=== PATIENT | female | born 1940 | race Caucasian/White ===

== ENCOUNTER 2017-11-28 07:11 | Inpatient (IN) ==
[2017-11-28] MEDS ORDERED: Ipratropium/Albuterol Neb 3 ML IH ONE (07:17)
[2017-11-28] MEDS ORDERED: Aspirin 81 MG TAB.CHEW PO ONE (07:19)
--- NOTE | 2017-11-28 07:32 | Emergency Department Note ---
Disposition Clinical Impression: Elevated troponin CAP (community acquired pneumonia) Qualifiers: Laterality: right Lung location: lower lobe of lung Qualified Code(s): J18.1 - Lobar pneumonia, unspecified organism Pulmonary edema Qualifiers: Chronicity: acute Qualified Code(s): J81.0 - Acute pulmonary edema Disposition: Admitted As Inpatient Condition: Fair Time of Disposition: 09:52 SOB HPI - General Chief Complaint: ED Shortness of Breath/Dyspnea Stated Complaint: bre Time Seen by Provider: 11/28/17 07:17 Source: patient, EMS Mode of arrival: EMS Limitations: no limitations Nursing Notes Reviewed: Yes Vital Signs Reviewed: Yes - History of Present Illness 76-year-old female presents to the emergency department complaining of shortness of breath. Says this has been going on for 2 or 3 days but worsened today when she woke up. Patient is on home oxygen when she needs about 2-3 L. Patient does have chronic kidney disease as she can be fluid overloaded sometimes. Patient's eye complaining of any chest pain at this time. She has no cardiac history that she knows of. She believes she is not have COPD. Patient otherwise says she does not hurt anywhere. She is having a hard time breathing. Patient was has no complaints including fevers, chills, nausea, vomiting, headache, blurry vision, neck pain, back pain, chest pain, abdominal pain, pain with urination, changes in bowel movements, particularly her arms or legs and generalized weakness - Related Data Home Medications Medication Instructions Recorded Confirmed Dronedarone [Multaq] 400 mg PO BID 09/04/15 02/09/16 Furosemide [Lasix] 40 mg PO BID 09/04/15 02/09/16 Glimepiride [Amaryl] 1 mg PO DAILY PRN 09/04/15 02/09/16 Insulin Glargine,Hum.rec.anlog 25 units SQ HS 09/04/15 02/09/16 [Lantus Solostar] Paricalcitol [Zemplar] 1 mcg PO DAILY 09/04/15 02/09/16 Potassium Chloride 20 meq PO DAILY 09/04/15 02/09/16 Sertraline [Zoloft] 50 mg PO DAILY 09/04/15 02/09/16 Warfarin [Coumadin] 5 mg PO DAILY 09/04/15 02/09/16 amLODIPine [Norvasc] 10 mg PO DAILY 09/04/15 02/09/16 Aspirin [Lo-Dose Aspirin EC] 81 mg PO DAILY 11/28/17 11/28/17 Atorvastatin [Lipitor] 40 mg PO HS 11/28/17 11/28/17 Carvedilol [Coreg] 25 mg PO BID 11/28/17 11/28/17 Iron Polysaccharide Complex [Pro 180 mg PO DAILY 11/28/17 11/28/17 Fe] LORazepam [Ativan] 0.5 mg PO HS PRN 11/28/17 11/28/17 Ranolazine [Ranexa] 500 mg PO BID 11/28/17 11/28/17 Warfarin [Coumadin] 2.5 mg PO MOTH 11/28/17 11/28/17 metOLazone [Zaroxolyn] 2.5 mg PO DAILY 11/28/17 11/28/17 Allergies Allergy/AdvReac Type Severity Reaction Status Date / Time epinephrine Allergy See Verified 11/28/17 09:46 Comments prednisone Allergy Itching Verified 11/28/17 09:46 Amoxicillin [From Augmentin] AdvReac Nausea Verified 11/28/17 09:46 clavulanic acid AdvReac Nausea Verified 11/28/17 09:46 [From Augmentin] Review of Systems: 10 point review of systems done and negative unless otherwise stated in the history of present illness. All systems ED: reviewed and negative except as stated. Review of Systems: As Per HPI Past Medical History - Past Medical History Attestation: Yes The following information was validated with the patient. Source: patient Medical history: Reports: atrial fibrillation, diabetes, GERD, hyperlipidemia, hypertension, renal disease, other Surgical history: Reports: angioplasty/stent, , orthopedic, other, other Psychiatric history: Reports: anxiety - Social History Smoking Status: Former smoker Smokeless Tobacco Status: No Alcohol use: Reports: none Drug use: Reports: none Physical Exam - General Limitations: no limitations General appearance: alert, in no apparent distress - Head Head exam: atraumatic, normocephalic, normal inspection - Eye Eye exam: Present: normal appearance, PERRL, EOMI - ENT ENT exam: normal exam, normal oropharynx, mucous membranes moist - Neck Neck exam: Present: normal inspection, full ROM, trachea midline - Chest Chest inspection: Present: normal inspection, symmetric chest wall rise - Respiratory Respiratory exam: Present: wheezes (Mild wheezes bilaterally.). Absent: respiratory distress, accessory muscle use, prolonged expiratory phase - Cardiovascular Cardiovascular exam: Present: regular rate, normal rhythm, normal heart sounds - Abdominal Exam Abdominal exam: Present: soft, Non-Tender. Absent: tenderness, distention, guarding, rebound, rigidity - Extremities Exam Extremities exam: Present: normal inspection, full ROM. Absent: tenderness, pedal edema - Expanded Lower Extremity Exam Neurovascular/Tendon exam: Present: normal capillary refill. Absent: pulse deficit, motor deficit, sensory deficit, tendon deficit - Back Exam Back exam: Present: normal inspection, full ROM. Absent: tenderness, CVA tenderness (R), CVA tenderness (L) - Neurological Exam Neurological exam: Present: alert, oriented X3 - Skin Skin exam: Present: warm, dry, intact, normal color Course Course Narrative: 76-year-old female presents to the emergency department complaining of shortness of breath. She was given 1 DuoNeb treatment by EMS prior to arrival. Patient did still sound wheezy. We will give her 2 more breathing treatments. Patient is allergic to prednisone so will not give her any steroids at this time. We will do a chest pain and shortness of breath workup including CBC, BMP, BNP, troponin as well as lactate. Will get chest x-ray. Patient does not have any risk factors for pulmonary and was not so will not get a d-dimer or a CT angios the chest at this time. Most likely disposition will be admission for further evaluation. Vital Signs Temperature 97.5 F L 11/28/17 07:12 Pulse Rate 75 11/28/17 07:12 Respiratory Rate 20 11/28/17 07:12 Blood Pressure 179/82 11/28/17 07:12 O2 Sat by Pulse Oximetry 92 11/28/17 07:12 Temperature 97.5 F L 11/28/17 07:12 Pulse Rate 73 11/28/17 09:30 Respiratory Rate 14 11/28/17 09:30 Blood Pressure 166/69 11/28/17 09:30 O2 Sat by Pulse Oximetry 92 11/28/17 09:30 Oxygen Delivery Oxygen Delivery Room Air Shortness of Breath/Dyspnea - [facility] Narrative Medical decision making narrative: 76-year-old female presents to the emergency department complaining of shortness of breath. After evaluating her this seemed to be more like fluid overload. Chest x-ray did show pulmonary edema as well as possible pneumonia. Due to patient's leukocytosis patient most likely have a pneumonia as well. So due to this we will give patient Levaquin antibiotics. His be done via IV. Patient for pulmonary edema also given Nitropaste. She tolerated this well. Patient did have elevated creatinine but it is stable for her. Patient also had an elevated troponin we did get aspirin. This most likely is due to ischemia secondary to heart strain. Due to patient's symptoms as well as than pneumonia and pulmonary edema without admission was needed. I spoke with Dr. Maharaj he agreed to admit the patient. Patient is admitted in stable condition. Chest X-Ray 11/28/17 07:18 IMPRESSION: 1. Bibasilar airspace opacities with small bilateral pleural effusions. Differential includes developing pulmonary edema or pneumonia. 2. Stable mild enlargement of the cardiac silhouette. D/ / Will Mak MD / Will Mak MD Interpreting Provider: Will Mak MD - Medical Records Medical records reviewed: Yes I reviewed the patient's medical records. - Lab Data Lab results reviewed: Yes I reviewed the patient's lab results. Result diagrams: 11/28/17 07:20 11/28/17 07:20 Lab Results 11/28/17 11/28/17 11/28/17 Range/Units 07:20 07:20 07:20 WBC 20.2 H (4.3-11.1) K/mcL RBC 4.23 (3.82-4.97) M/mcL Hgb 12.0 (11.5-15.4) g/dL Hct 38.2 (35.3-44.9) % MCV 90.3 (83.0-100.0) fL MCH 28.4 (28.0-33.3) pg MCHC 31.4 L (31.6-35.5) g/dL RDW 14.2 (11.5-14.5) % Plt Count 390 (140-400) K/mcL MPV 11.4 (9.4-12.4) fL Immature Gran % 0.8 (0-4) % Seg Neutrophils % 84.2 % Lymphocytes % 7.9 % Monocytes % 6.6 % Eosinophils % 0.2 % Basophils % 0.3 % Neutrophils # 17.0 H (1.6-8.9) K/mcL Lymphocytes # 1.6 (0.6-4.6) K/mcL Monocytes # 1.3 (0.0-1.3) K/mcL Eosinophils # 0.0 (0.0-0.6) K/mcL Basophils # 0.1 (0.0-0.2) K/mcL PT 34.5 H (9.4-12.1) Seconds INR 3.1 APTT 33.4 (26.0-36.0) Seconds Sodium 142 (136-145) mEq/L Potassium 3.4 L (3.5-5.1) mEq/L Chloride 99 (98-107) mEq/L Carbon Dioxide 31 H (23-29) mEq/L BUN 62 H (8-23) mg/dL Creatinine 2.47 H (0.60-1.20) mg/dL Est GFR ( Amer) 23 L (> 60) Est GFR (Non-Af Amer) 19 L (> 60) BUN/Creatinine Ratio 25 (6-26) Glucose 140 H (70-105) mg/dL Calculated Osmolality 314 H (280-300) Lactic Acid (0.5-2.2) mmol/L Calcium 10.0 (8.6-10.3) mg/dL Troponin I 0.07 H* (< 0.04) ng/mL B-Natriuretic Peptide (Less than 100) pg/mL 11/28/17 11/28/17 Range/Units 07:20 08:04 WBC (4.3-11.1) K/mcL RBC (3.82-4.97) M/mcL Hgb (11.5-15.4) g/dL Hct (35.3-44.9) % MCV (83.0-100.0) fL MCH (28.0-33.3) pg MCHC (31.6-35.5) g/dL RDW (11.5-14.5) % Plt Count (140-400) K/mcL MPV (9.4-12.4) fL Immature Gran % (0-4) % Seg Neutrophils % % Lymphocytes % % Monocytes % % Eosinophils % % Basophils % % Neutrophils # (1.6-8.9) K/mcL Lymphocytes # (0.6-4.6) K/mcL Monocytes # (0.0-1.3) K/mcL Eosinophils # (0.0-0.6) K/mcL Basophils # (0.0-0.2) K/mcL PT (9.4-12.1) Seconds INR APTT (26.0-36.0) Seconds Sodium (136-145) mEq/L Potassium (3.5-5.1) mEq/L Chloride (98-107) mEq/L Carbon Dioxide (23-29) mEq/L BUN (8-23) mg/dL Creatinine (0.60-1.20) mg/dL Est GFR ( Amer) (> 60) Est GFR (Non-Af Amer) (> 60) BUN/Creatinine Ratio (6-26) Glucose (70-105) mg/dL Calculated Osmolality (280-300) Lactic Acid 0.8 (0.5-2.2) mmol/L Calcium (8.6-10.3) mg/dL Troponin I (< 0.04) ng/mL B-Natriuretic Peptide 365 H (Less than 100) pg/mL - Radiology Data Radiology results reviewed: Yes I reviewed the patient's radiology results. - EKG Data EKG attestation: Yes I reviewed and interpreted this EKG. EKG results narrative: EKG done at 0 720 reviewed by myself and the attending shows sinus rhythm at a rate of 77, VA interval 200, QRS 104, QTC 434 with a normal axis. There is no acute ST changes no acute T-wave changes no other signs of ischemia. No signs of heart block, heart strength, hypertrophy. No WPW/Brugada syndrome. Overall this EKG is unchanged when compared with old ones on 05/28/15
--- NOTE | 2017-11-28 07:34 | Emergency Department Note ---
Disposition Clinical Impression: CAP (community acquired pneumonia), Pulmonary edema, Elevated troponin Disposition: Admitted As Inpatient Condition: Fair General Adult HPI - General Chief complaint: ED Shortness of Breath/Dyspnea Stated complaint: bre Time Seen by Provider: 11/28/17 07:17 Source: patient, EMS Mode of arrival: EMS Limitations: no limitations Nursing Notes Reviewed: Yes Vital Signs Reviewed: Yes - History of Present Illness Pain Scale: 0 - Related Data Home Medications Medication Instructions Recorded Confirmed Dronedarone [Multaq] 400 mg PO BID 09/04/15 11/28/17 Furosemide [Lasix] 40 mg PO BID 09/04/15 11/28/17 Glimepiride [Amaryl] 4 mg PO DAILY PRN 09/04/15 11/28/17 Insulin Glargine,Hum.rec.anlog 32 units SQ HS 09/04/15 11/28/17 [Lantus Solostar] Paricalcitol [Zemplar] 1 mcg PO MOWEFR 09/04/15 11/28/17 Potassium Chloride 20 meq PO DAILY 09/04/15 11/28/17 Sertraline [Zoloft] 50 mg PO DAILY 09/04/15 11/28/17 Warfarin [Coumadin] 5 mg PO [id number] 09/04/15 11/28/17 amLODIPine [Norvasc] 10 mg PO DAILY 09/04/15 11/28/17 Aspirin [Lo-Dose Aspirin EC] 81 mg PO DAILY 11/28/17 11/28/17 Atorvastatin [Lipitor] 40 mg PO HS 11/28/17 11/28/17 Carvedilol [Coreg] 25 mg PO BID 11/28/17 11/28/17 Iron Polysaccharide Complex [Pro 180 mg PO DAILY 11/28/17 11/28/17 Fe] LORazepam [Ativan] 0.5 mg PO HS PRN 11/28/17 11/28/17 Ranolazine [Ranexa] 500 mg PO BID 11/28/17 11/28/17 Warfarin [Coumadin] 2.5 mg PO MOTH 11/28/17 11/28/17 metOLazone [Zaroxolyn] 2.5 mg PO DAILY 11/28/17 11/28/17 Allergies Allergy/AdvReac Type Severity Reaction Status Date / Time epinephrine Allergy See Verified 11/28/17 09:46 Comments prednisone Allergy Itching Verified 11/28/17 09:46 Amoxicillin [From Augmentin] AdvReac Nausea Verified 11/28/17 09:46 clavulanic acid AdvReac Nausea Verified 11/28/17 09:46 [From Augmentin] Past Medical History - Past Medical History Medical history: Reports: atrial fibrillation, diabetes, GERD, hyperlipidemia, hypertension, renal disease, other Surgical history: Reports: angioplasty/stent, , orthopedic, other, other Psychiatric history: Reports: anxiety - Social History Smoking Status: Former smoker Smokeless Tobacco Status: No Alcohol use: Reports: none Drug use: Reports: none Physical Exam - General Limitations: no limitations General appearance: alert, in no apparent distress Course Vital Signs Temperature 97.5 F L 11/28/17 07:12 Pulse Rate 75 11/28/17 07:12 Respiratory Rate 20 11/28/17 07:12 Blood Pressure 179/82 11/28/17 07:12 O2 Sat by Pulse Oximetry 92 11/28/17 07:12 Temperature 98.9 F 11/28/17 11:10 Pulse Rate 73 11/28/17 11:10 Respiratory Rate 18 11/28/17 11:10 Blood Pressure 161/63 11/28/17 11:10 O2 Sat by Pulse Oximetry 92 11/28/17 11:10 Oxygen Delivery Oxygen Delivery Room Air Medical Decision Making - MDM Narrative Medical decision making narrative: This documentation is done with the assistance of Dragon dictation. Despite efforts made to ensure accuracy, there may be inaccuracies in airline ticket agent or spelling and typographical errors. I examined this patient and my medical decision-making was reviewed with the Resident Physician. I agree with the documented findings, disposition and treatment plan as described except to the extent set forth below. Patient seen and evaluated on arrival with EMS, and Dr. Coughlin, agree with his evaluation management plan, I supervised the care of the patient's stay. Patient has a history of kidney disease and respiratory problems she has not cervix fluid in her lungs or COPD she is on auction 3 L when necessary. Increase cough and wheezing last 2 days medics give her breathing treatment she sounded somewhat better but still wheezing here no swelling in her ankles no chest pain. We will order a workup and reassess most likely she will need admission. She is in agreement with this plan. Chest X-Ray 11/28/17 07:18 IMPRESSION: 1. Bibasilar airspace opacities with small bilateral pleural effusions. Differential includes developing pulmonary edema or pneumonia. 2. Stable mild enlargement of the cardiac silhouette. D/ / Will Mak MD / Will Mak MD Interpreting Provider: Will Mak MD 0832 hrs.: Patient does look like she has pneumonia with possible some pleural edema. Her creatinine is at baseline. Her white count is elevated. Rest her on IV antibiotics. Nitroglycerin also for her CHF and elevated blood pressure. We will bring her into the hospital. She is in agreement with this plan. Impression #1 is pneumonia, with pulmonary edema and chronic renal insufficiency. We will admit to hospitalist service. Updating patient on the plan. 0900 hrs.: Hospitalist accepted patient for admission. Patient's in agreement with this plan. - Lab Data Result diagrams: 11/28/17 07:20 11/28/17 07:20 Lab Results 11/28/17 11/28/17 11/28/17 Range/Units 07:20 07:20 07:20 WBC 20.2 H (4.3-11.1) K/mcL RBC 4.23 (3.82-4.97) M/mcL Hgb 12.0 (11.5-15.4) g/dL Hct 38.2 (35.3-44.9) % MCV 90.3 (83.0-100.0) fL MCH 28.4 (28.0-33.3) pg MCHC 31.4 L (31.6-35.5) g/dL RDW 14.2 (11.5-14.5) % Plt Count 390 (140-400) K/mcL MPV 11.4 (9.4-12.4) fL Immature Gran % 0.8 (0-4) % Seg Neutrophils % 84.2 % Lymphocytes % 7.9 % Monocytes % 6.6 % Eosinophils % 0.2 % Basophils % 0.3 % Neutrophils # 17.0 H (1.6-8.9) K/mcL Lymphocytes # 1.6 (0.6-4.6) K/mcL Monocytes # 1.3 (0.0-1.3) K/mcL Eosinophils # 0.0 (0.0-0.6) K/mcL Basophils # 0.1 (0.0-0.2) K/mcL PT 34.5 H (9.4-12.1) Seconds INR 3.1 APTT 33.4 (26.0-36.0) Seconds Sodium 142 (136-145) mEq/L Potassium 3.4 L (3.5-5.1) mEq/L Chloride 99 (98-107) mEq/L Carbon Dioxide 31 H (23-29) mEq/L BUN 62 H (8-23) mg/dL Creatinine 2.47 H (0.60-1.20) mg/dL Est GFR ( Amer) 23 L (> 60) Est GFR (Non-Af Amer) 19 L (> 60) BUN/Creatinine Ratio 25 (6-26) Glucose 140 H (70-105) mg/dL Calculated Osmolality 314 H (280-300) Lactic Acid (0.5-2.2) mmol/L Calcium 10.0 (8.6-10.3) mg/dL Troponin I 0.07 H* (< 0.04) ng/mL B-Natriuretic Peptide (Less than 100) pg/mL 11/28/17 11/28/17 Range/Units 07:20 08:04 WBC (4.3-11.1) K/mcL RBC (3.82-4.97) M/mcL Hgb (11.5-15.4) g/dL Hct (35.3-44.9) % MCV (83.0-100.0) fL MCH (28.0-33.3) pg MCHC (31.6-35.5) g/dL RDW (11.5-14.5) % Plt Count (140-400) K/mcL MPV (9.4-12.4) fL Immature Gran % (0-4) % Seg Neutrophils % % Lymphocytes % % Monocytes % % Eosinophils % % Basophils % % Neutrophils # (1.6-8.9) K/mcL Lymphocytes # (0.6-4.6) K/mcL Monocytes # (0.0-1.3) K/mcL Eosinophils # (0.0-0.6) K/mcL Basophils # (0.0-0.2) K/mcL PT (9.4-12.1) Seconds INR APTT (26.0-36.0) Seconds Sodium (136-145) mEq/L Potassium (3.5-5.1) mEq/L Chloride (98-107) mEq/L Carbon Dioxide (23-29) mEq/L BUN (8-23) mg/dL Creatinine (0.60-1.20) mg/dL Est GFR ( Amer) (> 60) Est GFR (Non-Af Amer) (> 60) BUN/Creatinine Ratio (6-26) Glucose (70-105) mg/dL Calculated Osmolality (280-300) Lactic Acid 0.8 (0.5-2.2) mmol/L Calcium (8.6-10.3) mg/dL Troponin I (< 0.04) ng/mL B-Natriuretic Peptide 365 H (Less than 100) pg/mL
[2017-11-28 08:02] LABS: Potassium 3.4 mEq/L (3.5-5.1)
[2017-11-28 08:05] LABS: Troponin I 0.07 ng/mL (< 0.04)
[2017-11-28 08:11] LABS: Basophils # 0.1 K/mcL (0.0-0.2); Basophils % 0.3 %; Eosinophils % 0.2 %; Hematocrit 38.2 % (35.3-44.9); Immature Granulocytes % 0.8 % (0-4); Lymphocytes # 1.6 K/mcL (0.6-4.6); Lymphocytes % 7.9 %; Mean Corpuscular HGB Conc 31.4 g/dL (31.6-35.5); Mean Corpuscular Hemoglobin 28.4 pg (28.0-33.3); Mean Corpuscular Volume 90.3 fL (83.0-100.0); Mean Platelet Volume 11.4 fL (9.4-12.4); Monocytes # 1.3 K/mcL (0.0-1.3); Monocytes % 6.6 %; Platelet Count 390 K/mcL (140-400); Red Blood Count 4.23 M/mcL (3.82-4.97); Red Cell Distribution Width 14.2 % (11.5-14.5); Segmented Neutrophils % 84.2 %
[2017-11-28 08:23] LABS: INR 3.1; Prothrombin Time 34.5 Seconds (9.4-12.1)
[2017-11-28 08:26] LABS: Activated Partial Thrombo Time 33.4 Seconds (26.0-36.0)
[2017-11-28] MEDS ORDERED: Levofloxacin 750 MG/150 ML 750 MG/150 ML BAG IVPB ONE (08:32)
[2017-11-28] MEDS ORDERED: Nitroglycerin 1 INCH/GM PACKET TP ONE (08:32)
[2017-11-28] MEDS ORDERED: Naloxone 0.4 MG/ML INJ IVP PRN (09:49)
[2017-11-28 09:51] LABS: Bilirubin,Urine Negative (Negative); Blood,Urine Negative (Negative); Clarity,Urine Clear (Clear); Color,Urine Yellow (Yellow); Glucose,Urine (UA) Normal (Normal); Ketones,Urine Negative (Negative); Leukocyte Esterase,Urine Negative (Negative); Nitrite,Urine Negative (Negative); PH,Urine 5.5 pH Units (5.0-8.0); Protein,Urine 100 mg/dL (Neg-Trace); Specific Gravity,Urine 1.023 (1.010-1.025); Urobilinogen,Urine Normal (Normal)
[2017-11-28 09:54] LABS: Bacteria,Urine None Seen per hpf (None-Few); Hyaline Casts,Urine None Seen per lpf (None-Few); RBC,Urine 0-3 per hpf (0-3); Squamous Epithelial Cell,Urine Moderate per lpf (None-Few)
--- NOTE | 2017-11-28 10:21 | Internal Med History&Physical ---
Date of Encounter: 11/28/17 Time of Encounter: 10:00 Assessment and Plan (1) Pulmonary edema Current visit: Yes Status: Acute Patient appears to show signs of acute pulmonary edema possibly due to underlying congestive heart failure. Troponins are mildly elevated. Will get 2 -D echocardiogram. Place patient on telemetry. Trend troponins. IV Lasix. Monitor vital signs closely. Continue metolazone. High risk for complications. Qualifiers: Chronicity: acute Qualified Code(s): J81.0 - Acute pulmonary edema (2) Chronic kidney disease, stage IV (severe) Current visit: Yes Status: Chronic Renal function at baseline. Follow renal function closely especially as patient will be receiving intravenous diuretics. Monitor urine output. Consider nephrology consult if renal function worsens or patient does not have appropriate increase in urine output. (3) Pneumonia Current visit: Yes Status: Suspected Chest x-ray shows bibasilar opacities concerning for infiltrates versus pulmonary edema. Patient does have leukocytosis but most likely this is due to prednisone. We will check pro-calcitonin. Check urine strep and Legionella antigens. Blood cultures have also been ordered but patient did receive antibiotic already. Consider rapid de-escalation and even stopping antibiotics if patient does not develop any fever or an cultures remain negative and patient does not exhibit any further signs of pneumonia. Will change antibiotic to Rocephin and doxycycline as patient is on Multaq Qualifiers: Pneumonia type: due to Pneumococcus Laterality: bilateral Lung location: lower lobe of lung Qualified Code(s): J13 - Pneumonia due to Streptococcus pneumoniae (4) Essential hypertension Current visit: Yes Status: Chronic Blood pressure elevated at this time. Will place patient back on her usual antihypertensive regimen. Adjust antihypertensives according to blood pressure. (5) Atrial fibrillation Current visit: Yes Status: Chronic Currently patient is in sinus rhythm. Rate controlled. On Coumadin. Continue MULTAQ Qualifiers: Atrial fibrillation type: chronic Qualified Code(s): I48.2 - Chronic atrial fibrillation (6) Diabetes Current visit: Yes Status: Chronic Monitor blood sugars. Place patient on sliding scale insulin coverage. Check A1c level. Diabetic diet. Qualifiers: Diabetes mellitus type: type 2 Diabetes mellitus ferry terminal agent insulin use: with long-term use Chronic kidney disease stage: stage 4 (severe) Qualified Code(s): E11.22 - Type 2 diabetes mellitus with diabetic chronic kidney disease ; N18.4 - Chronic kidney disease, stage 4 (severe); N18.4 - Chronic kidney disease, stage 4 (severe); N18.4 - Chronic kidney disease, stage 4 (severe); N18.4 - Chronic kidney disease, stage 4 (severe); Z79.4 - buttermaker continuous churn (current) use of insulin; Z79.4 - longterm (current) use of insulin; Z79.4 - buttermaker continuous churn ( current) use of insulin; Z79.4 - buttermaker continuous churn (current) use of insulin (7) DVT prophylaxis Current visit: Yes Status: Acute Patient is on Coumadin. INR is therapeutic Internal Medicine - H&P: HPI Chief complaint: Shortness of breath Admitted From: Emergency Dept Plans for Post Hospital Care: Home History of present illness: Ms. Lockhart is a 76 year old female patient with a history of chronic kidney disease, chronic respiratory failure on home oxygen as needed, obstructive sleep apnea on CPAP, atrial fibrillation, diabetes, hypertension and hyperlipidemia presented to the ER with complaints of shortness of breath. Symptoms have been going on for 2 days now. She was started on steroid Dose pack by her agriculture professor for gout on Tuesday. When her symptoms of gout resolved soon after, she began to have shortness of breath since that night. This has progressed since then. She has nonproductive cough. No fever. No chest pain. She describes lower extremity swelling. No nausea or vomiting. No diarrhea. No palpitations. Patient has never been diagnosed with any heart disease besides A. fib. She does have an implantable loop recorder. She is on Lasix and metolazone which were started by her kidney specialist. Past Med Surg Social Fam HX - Past Medical History Attestation: Yes The following information was validated with the patient. Source: patient Medical history: atrial fibrillation, diabetes, GERD, hyperlipidemia, hypertension, renal disease, other Psychiatric history: anxiety - Past Surgical History Surgical History: angioplasty/stent, , orthopedic, other, other - Social History Smoking Status: Former smoker Smokeless Tobacco Status: No Alcohol use: none Drug use: none - Family History Mother Living Status: Hx Family Cardiac Disorders: Yes Internal Medicine - H&P: Meds Dronedarone [Multaq] 400 mg PO BID 09/04/15 [History] Furosemide [Lasix] 40 mg PO BID 09/04/15 [History] Glimepiride [Amaryl] 4 mg PO DAILY PRN 09/04/15 [History] Insulin Glargine,Hum.rec.anlog [Lantus Solostar] 32 units SQ HS 09/04/15 [ History] Paricalcitol [Zemplar] 1 mcg PO MOWEFR 09/04/15 [History] Potassium Chloride 20 meq PO DAILY 09/04/15 [History] Sertraline [Zoloft] 50 mg PO DAILY 09/04/15 [History] Warfarin [Coumadin] 5 mg PO SUTUWEFRSA 09/04/15 [History] amLODIPine [Norvasc] 10 mg PO DAILY 09/04/15 [History] Aspirin [Lo-Dose Aspirin EC] 81 mg PO DAILY 11/28/17 [History] Atorvastatin [Lipitor] 40 mg PO HS 11/28/17 [History] Carvedilol [Coreg] 25 mg PO BID 11/28/17 [History] Iron Polysaccharide Complex [Pro Fe] 180 mg PO DAILY 11/28/17 [History] LORazepam [Ativan] 0.5 mg PO HS PRN 11/28/17 [History] Ranolazine [Ranexa] 500 mg PO BID 11/28/17 [History] Warfarin [Coumadin] 2.5 mg PO MOTH 11/28/17 [History] metOLazone [Zaroxolyn] 2.5 mg PO DAILY 11/28/17 [History] 3 Allergy/AdvReac Type Severity Reaction Status Date / Time epinephrine Allergy See Verified 11/28/17 09:46 Comments prednisone Allergy Itching Verified 11/28/17 09:46 Amoxicillin [From Augmentin] AdvReac Nausea Verified 11/28/17 09:46 clavulanic acid AdvReac Nausea Verified 11/28/17 09:46 [From Augmentin] All Systems PM: A 10-system review of systems was performed and is negative for pertinent findings except as documented above in the HPI. - Constitutional Constitutional: no chills, no fever(s), no night sweats - EENT Eyes: no change in vision, no discharge, no pain, no photophobia Ears: no ear discharge, no ear pain, no tinnitus Nose, mouth and throat: no dysphagia, no nasal discharge, no neck pain, no sore throat - Cardiovascular Cardiovascular ROS IM: dyspnea, dyspnea on exertion, edema, no chest pain, no diaphoresis, no lightheadedness, no palpitations, no syncope - Respiratory Respiratory: cough, dyspnea, dyspnea on exertion, no wheezing, no excessive phlegm production - Gastrointestinal Gastrointestinal: no abdominal pain, no diarrhea, no hematemesis, no hematochezia, no melena, no nausea, no vomiting - Genitourinary Genitourinary: no change in urinary stream, no dysuria, no flank pain, no hematuria - Musculoskeletal Musculoskeletal ROS IM: no numbness, no tingling - Integumentary Integumentary IM: no rash, no unusual bruising - Neurological Neurological ROS: no confusion, no convulsions, no focal weakness, no numbness, no tingling, no tremor(s) - Hematologic/Lymphatic Hematologic/Lymphatic: no easy bruising - Constitutional Vitals: Temp Pulse Resp BP Pulse Ox 98.8 F 84 19 169/57 91 11/28/17 10:06 11/28/17 10:06 11/28/17 10:06 11/28/17 10:06 11/28/17 10:06 General appearance: Present: cooperative, mild distress, A&O X 3, answers questions appropriately - Neck Neck exam general surgery: Present: supple, trachea midline. Absent: lymphadenopathy - Respiratory Respiratory exam: Present: CTAB. Absent: accessory muscle use, rales, rhonchi, wheezes - Cardiovascular Cardiovascular exam: Present: RRR, +S1, +S2. Absent: diastolic murmur, gallop, rubs, systolic murmur - GI/Abdominal GI/Abdominal exam: Present: normal bowel sounds, soft, no peritoneal signs. Absent: distended, tenderness - Extremities Exam Extremities exam: Present: warm, radial pulses palpable and symmetrical. Absent : calf tenderness, cyanotic, pedal edema - Neurological Exam Neurological exam: Present: CN II-XII intact, oriented X3, no focal deficits. Absent: facial droop, speech deficit - Skin Skin exam: Present: dry, intact Internal Med - H&P Results - Labs CBC & Chem 7: 11/28/17 07:20 11/28/17 07:20 Labs: Urine 11/28/17 Range/Units 09:30 Urine Color Yellow (Yellow) Urine Clarity Clear (Clear) Urine pH 5.5 (5.0-8.0) pH Units Ur Specific [place] 1.023 (1.010-1.025) Urine Protein 100 H (Neg-Trace) mg/dL Urine Glucose (UA) Normal (Normal) mg/dL - EKG Data -: EKG Interpreted by Myself EKG shows normal: sinus rhythm - Impressions Impressions Chest X-Ray 11/28/17 07:18 IMPRESSION: 1. Bibasilar airspace opacities with small bilateral pleural effusions. Differential includes developing pulmonary edema or pneumonia. 2. Stable mild enlargement of the cardiac silhouette. D/ / Will Mak MD / Will Mak MD Interpreting Provider: Will Mak MD
[2017-11-28] MEDS ORDERED: *HR* Dextrose 50 % in Water (Syg) 50 ML SYRINGE IVP PRN (10:32)
[2017-11-28] MEDS ORDERED: D5% in Water 1,000 ML IVC PRN (10:32)
[2017-11-28] MEDS ORDERED: Dextrose Gel 15 GM/37.5 ML TUBE PO PRN ×2 (10:32)
[2017-11-28] MEDS: Doxycycline 100 MG CAPSULE PO SCH ×2 (11:01→22:04)
[2017-11-28] MEDS: Insulin LISPRO 300 UNITS/3 ML VIAL SQ SCH ×3 (11:30→22:21)
[2017-11-28 13:57] LABS: Estimated Average Glucose 154 mg/dl
[2017-11-28] MEDS: Acetaminophen 325 MG TABLET PO PRN ×2 (14:21→22:04)
[2017-11-28] MEDS: Ipratropium/Albuterol Neb 3 ML IH PRN (14:48)
[2017-11-28] MEDS ORDERED: Warfarin perPT PO SCH (18:00)
[2017-11-28] MEDS ORDERED: *HR* Heparin 5,000 UNIT/ML VIAL SQ SCH (18:00)
[2017-11-28] MEDS ORDERED: Perflutren Lipid Microsphere 1.3 ML in 0.9 % Sodium Chloride 8.7 ML IVP ONE (21:42)
[2017-11-28] MEDS: *HR* LORazepam 0.5 MG TABLET PO PRN (22:04)
[2017-11-28] MEDS: Ranolazine 500 MG TAB.ER.12H PO SCH (22:04)
[2017-11-28] MEDS: Insulin DETEMIR 100 UNIT/ML X5UNITS SQ SCH (22:22)
[2017-11-29] MEDS: Ipratropium/Albuterol Neb 3 ML IH PRN ×2 (02:45→20:04)
[2017-11-29 04:04] LABS: Basophils # 0.1 K/mcL (0.0-0.2); Basophils % 0.5 %; Eosinophils # 0.2 K/mcL (0.0-0.6); Hematocrit 35.3 % (35.3-44.9); Hemoglobin 11.4 g/dL (11.5-15.4); Immature Granulocytes % 0.9 % (0-4); Lymphocytes # 1.2 K/mcL (0.6-4.6); Lymphocytes % 8.3 %; Mean Corpuscular HGB Conc 32.3 g/dL (31.6-35.5); Mean Corpuscular Hemoglobin 28.8 pg (28.0-33.3); Mean Corpuscular Volume 89.1 fL (83.0-100.0); Mean Platelet Volume 10.8 fL (9.4-12.4); Monocytes # 1.3 K/mcL (0.0-1.3); Monocytes % 9.1 %; Neutrophils # 11.9 K/mcL (1.6-8.9); Platelet Count 311 K/mcL (140-400); Red Blood Count 3.96 M/mcL (3.82-4.97); Red Cell Distribution Width 14.4 % (11.5-14.5); Segmented Neutrophils % 80.2 %
[2017-11-29 04:21] LABS: Calcium 9.9 mg/dL (8.6-10.3); Magnesium 1.9 mg/dL (1.6-2.6); Potassium 2.7 mEq/L (3.5-5.1)
[2017-11-29] MEDS ORDERED: Potassium Chloride 40 MEQ, Lidocaine 1% 2 ML in D5% in Water 500 ML IVPB ONE (04:45)
[2017-11-29] MEDS: Aspirin Enteric Coated 81 MG Tablet PO SCH (08:51)
[2017-11-29] MEDS: Doxycycline 100 MG CAPSULE PO SCH ×2 (08:51→20:55)
[2017-11-29] MEDS: Ranolazine 500 MG TAB.ER.12H PO SCH ×3 (08:51→23:37)
[2017-11-29] MEDS: metOLazone 2.5 MG TABLET PO SCH (08:51)
[2017-11-29] MEDS: Insulin DETEMIR 100 UNIT/ML X5UNITS SQ SCH (08:52)
[2017-11-29] MEDS: amLODIPine 5 MG TABLET PO SCH (08:52)
[2017-11-29] MEDS: Furosemide 40 MG/4 ML VIAL IVP SCH ×2 (08:53→18:25)
[2017-11-29] MEDS: Insulin LISPRO 300 UNITS/3 ML VIAL SQ SCH ×4 (08:54→23:37)
[2017-11-29] MEDS: cefTRIAXone 2,000 MG in Water for inj. (sterile) 20 ML 20 ML IVP SCH (11:08)
[2017-11-29 11:55] LABS: Prothrombin Time 44.4 Seconds (9.4-12.1)
--- NOTE | 2017-11-29 19:48 | Electrocardiograph Report ---
[place] [address] Test Date: 2017-11-28 Pat Name: Mariaa Lockhart Department: 102 Room: 2A Gender: F Center Medical Specialist: Lrs : 1940 Requested By: Luis Coughlin Order Number: [id number] Reading MD: Butch Hernández MD Measurements Intervals [place] Rate: 77 P: 91 LA: 200 QRS: 15 QRSD: 104 T: 53 QT: 403 QTc: 434 Interpretive Statements SINUS RHYTHM Poor R wave progression BASELINE ARTIFACT Electronically Signed On 11-29-2017 19:47:26 EDT by Butch Hernández MD
[2017-11-29] MEDS: *HR* LORazepam 0.5 MG TABLET PO PRN (20:55)
--- NOTE | 2017-11-29 21:27 | Internal Med Progress Note ---
Date of Encounter: 11/29/17 Time of Encounter: 09:07 - Assessment and plan (1) Pulmonary edema Current Visit: Yes Status: Acute Assessment and plan: Patient appears to show signs of acute pulmonary edema possibly due to underlying congestive heart failure. Troponins trended down to 0.06. Follow up on ECHO results. Continue telemetry. Continue IV Lasix. Continue home PO metolazone. Recheck BMP in AM. Qualifiers: Chronicity: acute Qualified Code(s): J81.0 - Acute pulmonary edema (2) Pneumonia Current Visit: Yes Status: Acute Assessment and plan: Chest x-ray shows bibasilar opacities concerning for infiltrates versus pulmonary edema. Leukocytosis improved today. Continue Rocephin and doxycycline as patient is on Multaq. Consider deescalating with improvement. Recheck CBC in AM. Qualifiers: Pneumonia type: due to Pneumococcus Laterality: bilateral Lung location: lower lobe of lung Qualified Code(s): J13 - Pneumonia due to Streptococcus pneumoniae (3) Chronic kidney disease, stage IV (severe) Current Visit: Yes Status: Chronic Assessment and plan: Renal function at baseline. Cr improved today. Follow renal function closely especially as patient will be receiving intravenous diuretics. Monitor urine output. Consider nephrology consult if renal function worsens or patient does not have appropriate increase in urine output. Recheck BMP in AM. (4) Atrial fibrillation Current Visit: Yes Status: Chronic Assessment and plan: Currently in NSR. Rate controlled. On Coumadin. Continue MULTAQ. Qualifiers: Atrial fibrillation type: chronic Qualified Code(s): I48.2 - Chronic atrial fibrillation (5) Diabetes Current Visit: Yes Status: Chronic Assessment and plan: Continue accuchecks and SSI QID AC/HS. Continue diabetic diet. Qualifiers: Diabetes mellitus type: type 2 Diabetes mellitus halfway insulin use: with halfway use Chronic kidney disease stage: stage 4 (severe) Qualified Code(s): E11.22 - Type 2 diabetes mellitus with diabetic chronic kidney disease ; N18.4 - Chronic kidney disease, stage 4 (severe); N18.4 - Chronic kidney disease, stage 4 (severe); N18.4 - Chronic kidney disease, stage 4 (severe); N18.4 - Chronic kidney disease, stage 4 (severe); Z79.4 - USP (current) use of insulin; Z79.4 - USP (current) use of insulin; Z79.4 - grievance coordinator ( current) use of insulin; Z79.4 - grievance coordinator (current) use of insulin (6) Essential hypertension Current Visit: Yes Status: Chronic Assessment and plan: Now normotensive. Continue home medications. (7) Hypokalemia Current Visit: Yes Status: Acute Assessment and plan: K = 2.7 today. Likely secondary to heavy diuresis. Repleted with 40 mEq PO once today in addition to KCl 20 mEq PO QD. Continue daily supplementation. Recheck BMP in AM and further supplement as necessary. (8) DVT prophylaxis Current Visit: Yes Status: Acute Assessment and plan: On coumadin with supratherapeutic INR. Pharmacy managing coumadin. - Time Spent With Patient less than 15 minutes - Subjective Interval history: Patient had no acute events overnight. She states that she feels "somewhat better." She states that SOB is improved slightly. She denies chest pain, fever, or chills. Appetite still decreased, but good PO hydration. She has no new complaints. - Constitutional Vitals: Temp Pulse Resp BP Pulse Ox 98.3 F 64 16 130/73 90 11/29/17 21:17 11/29/17 21:17 11/29/17 21:17 11/29/17 21:17 11/29/17 21:17 General appearance: Present: cooperative, A&O X 3, pleasant, no acute distress, answers questions appropriately - Respiratory Respiratory exam: Present: CTAB. Absent: accessory muscle use, rales, rhonchi, wheezes Additional comments: Mildly labored WOB - Cardiovascular Cardiovascular exam: Present: RRR, +S1, +S2. Absent: diastolic murmur, gallop, rubs, systolic murmur Additional comments: No BLE edema - GI/Abdominal GI/Abdominal exam: Present: normal bowel sounds, soft. Absent: distended, hepatomegaly, mass, splenomegaly, tenderness - Psychiatric Psychiatric exam: Present: normal affect, normal mood. Absent: anxious, depressed - Skin Skin exam: Present: dry, intact, warm. Absent: cyanosis, rash Internal Medicine: Result - Labs CBC & Chem 7: 11/29/17 03:44 11/29/17 03:44 Labs: Short CBC 11/29/17 Range/Units 03:44 WBC 14.8 H (4.3-11.1) K/mcL Hgb 11.4 L (11.5-15.4) g/dL Hct 35.3 (35.3-44.9) % Plt Count 311 (140-400) K/mcL Neutrophils # 11.9 H (1.6-8.9) K/mcL BMP 11/29/17 11/29/17 03:44 03:44 Sodium 142 Potassium 2.7 L 2.7 L Chloride 100 Carbon Dioxide 30 H BUN 53 H Creatinine 2.02 H Glucose 50 L Calcium 9.9 - ABG Interpretation ABG results: PT/INR, D-dimer PT 44.4 Seconds (9.4-12.1) H* 11/29/17 11:22 - Impressions Impressions Echocardiogram 11/28/17 10:32 Impressions: Blood pressure 172/56 mmHg at time of study. LVEF 55%. Mildly dilated left ventricle. Moderate left ventricular diastolic dysfunction. There is no LV thrombus. Definity echo contrast was used. Normal right ventricular structure and function. Degree of MR not well evaluated on this study - Limited echo has been ordered to better evaluate MR. No pulmonary hypertension by TR gradient, 29 mmHg. Left Ventricular Wall Motion: Rest Echo Findings The mid inferior lateral and basal inferior lateral greenberg were not visualized. All other wall segments showed normal motion. Findings: Study Quality * Technically somewhat challenging windows due to body habitus. ECG Findings * Normal sinus rhythm. Left Ventricle * LVEF 55%. * Mildly dilated left ventricle. * Moderate left ventricular diastolic dysfunction. * There is no LV thrombus. * Definity echo contrast was used. Right Ventricle * Normal right ventricular structure and function. Left Atrium * Normal left atrial size. Right Atrium * Normal right atrial size. Aortic Valve * No aortic regurgitation. * Mildly thickened aortic valve leaflets. * Trileaflet aortic valve. * No aortic stenosis. Mitral Valve * Mitral valve structure not optimally visualized. * Degree of MR not well evaluated on this study. * No mitral stenosis. * Mild mitral annular calcification * Calcification of the subvalvular apparatus noted. Tricuspid Valve * Tricuspid valve not well visualized. * Trace tricuspid regurgitation. Pulmonic Valve * Pulmonic valve is not well visualized. * No pulmonic stenosis. * Trace pulmonic regurgitation. Pulmonary Artery * Pulmonary artery not well visualized. Aorta * Normally sized aortic root. Pericardium * There is no pericardial effusion present. Interatrial Septum * Interatrial septum not well evaluated. IVC * The IVC is not well evaluated. Echocardiogram Limited Views 11/29/17 00:00 Impressions: Mitral regurgitation appears moderate by spectral Doppler but is not optimally seen by color flow imaging. Calcification of the mitral subvalvular apparatus. Mitral valve structure appears normal but is not optimally seen in all views. Recommend clinical correlation. Left Ventricular Wall Motion: Rest Echo Findings The mid inferior lateral and basal inferior lateral greenberg were not visualized. All other wall segments showed normal motion. Findings: Study Quality * Technically adequate exam. ECG Findings * Normal sinus rhythm. Left Ventricle * LVEF 55%. * Mildly dilated left ventricle. Mitral Valve * Mitral regurgitation appears moderate by spectral doppler but is not optimally seen by color flow imaging. * Calcification of the subvalvular apparatus. * Mitral valve structure appears normal but is not optimally seen in all views. Interatrial Septum * No evidence of PFO by color Doppler. IVC * The IVC is not dilated. Consult Discharge Plan - Plan Referrals: Ursula Carlos, TRACK REPAIRER [Primary Care Provider] -
[2017-11-30 06:40] LABS: Basophils # 0.1 K/mcL (0.0-0.2); Basophils % 0.5 %; Eosinophils # 0.3 K/mcL (0.0-0.6); Eosinophils % 1.9 %; Hematocrit 31.7 % (35.3-44.9); Hemoglobin 10.2 g/dL (11.5-15.4); Immature Granulocytes % 0.8 % (0-4); Lymphocytes # 1.5 K/mcL (0.6-4.6); Mean Corpuscular HGB Conc 32.2 g/dL (31.6-35.5); Mean Corpuscular Hemoglobin 28.6 pg (28.0-33.3); Mean Corpuscular Volume 88.8 fL (83.0-100.0); Mean Platelet Volume 11.2 fL (9.4-12.4); Monocytes # 0.9 K/mcL (0.0-1.3); Monocytes % 6.5 %; Neutrophils # 10.5 K/mcL (1.6-8.9); Platelet Count 280 K/mcL (140-400); Red Blood Count 3.57 M/mcL (3.82-4.97); Red Cell Distribution Width 14.5 % (11.5-14.5); Segmented Neutrophils % 79.3 %
[2017-11-30 06:49] LABS: Calcium 9.8 mg/dL (8.6-10.3); INR 3.4; Potassium 2.8 mEq/L (3.5-5.1); Prothrombin Time 37.5 Seconds (9.4-12.1)
[2017-11-30] MEDS: Insulin LISPRO 300 UNITS/3 ML VIAL SQ SCH ×4 (07:49→20:16)
[2017-11-30] MEDS: Doxycycline 100 MG CAPSULE PO SCH ×2 (07:49→20:14)
[2017-11-30] MEDS: metOLazone 2.5 MG TABLET PO SCH (07:50)
[2017-11-30] MEDS: Ranolazine 500 MG TAB.ER.12H PO SCH ×2 (07:50→20:15)
[2017-11-30] MEDS: amLODIPine 5 MG TABLET PO SCH (07:50)
[2017-11-30] MEDS: Aspirin Enteric Coated 81 MG Tablet PO SCH (07:50)
[2017-11-30] MEDS: Furosemide 40 MG/4 ML VIAL IVP SCH ×2 (07:51→17:18)
[2017-11-30] MEDS: Insulin DETEMIR 100 UNIT/ML X5UNITS SQ SCH (07:51)
[2017-11-30] MEDS: cefTRIAXone 2,000 MG in Water for inj. (sterile) 20 ML 20 ML IVP SCH (07:51)
--- NOTE | 2017-11-30 08:00 | Electrocardiograph Report ---
[address] [address] Test Date: 2017-11-29 Pat Name: Mariaa Lockhart Department: 112 Room: 2A Gender: F Foil Stamp Operator: : 1940 Requested By: Abran Servin Order Number: [id number] Reading MD: Butch Hernández MD Measurements Intervals [place] Rate: 121 P: [place]: 0 QRS: -15 QRSD: 96 T: 48 QT: 338 QTc: 410 Interpretive Statements ATRIAL FIBRILLATION WITH RAPID VENTRICULAR RESPONSE WITH ABERRANT CONDUCTION OR VENTRICULAR PREMATURE COMPLEXES INDETERMINATE AXIS LOW QRS VOLTAGE IN EXTREMITY LEADS POOR R WAVE PROGRESSION Electronically Signed On 11-30-2017 7:58:25 EDT by Butch Hernández MD
[2017-11-30] MEDS ORDERED: Potassium Chloride 40 MEQ, Lidocaine 1% 2 ML in D5% in Water 500 ML IVPB ONE (11:16)
[2017-11-30] MEDS: Acetaminophen 325 MG TABLET PO PRN (11:20)
--- NOTE | 2017-11-30 14:33 | Cardiology Consult Note ---
Date of Encounter: 11/30/17 Time of Encounter: 14:00 Assessment and Plan (1) Pneumonia Current Visit: Yes Status: Acute Per cardiology: -Admitted with pneumonia. -WBC elevated. -Management per primary service. Qualifiers: Pneumonia type: due to Pneumococcus Laterality: bilateral Lung location: lower lobe of lung Qualified Code(s): J13 - Pneumonia due to Streptococcus pneumoniae (2) Diastolic CHF Current Visit: Yes Status: Chronic Per cardiology: -Patient denies history of CHF, however takes metalazone and lasix at home. -Denies weight gain, however does reprot increased abdominal girth. -BNP 365. -Chest x-ray with small bilateral pleural effusions. -TTE with LVEF 55%, mildly dilated LV, moderate diastolic dysfunction, moderate MR, no segmental wall motion abnormalities. -ON IV lasix and metalazone. Of note, K 2.8 today-being replaced by primary service. -CHF education reinforced with patient. 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 -Denies chest pain. -ECG with no acute ischemic changes. -TTE with LVEF preserved, no segmental wall motion abnormalities. -Do not suspect NSTEMI, suspect demand ischemia related to above. No cardiac rehab consult warranted. (4) Chronic kidney disease, stage IV (severe) Current Visit: Yes Status: Chronic Per cardiology: -Creatinine 2.14, about baseline. -Management per primary service. (5) PAF (paroxysmal atrial fibrillation) Current Visit: Yes Status: Chronic Per cardiology: -KNown PAF. -On multaq and beta yamileth. -Currently SR. -ON coumadin for anticoagulation. -Will continue to monitor Discussion w patient/family: The assessment and plan as outlined above was discussed with the patient and/or family members who expressed understanding and agreement. All questions were answered. Thank you for involving us in the care of your patient. Please call with any questions. Discussed and reviewed with . History of Present Illness Consult date: 03/28/18 Requesting physician: Adarsh Wallace Consult reason: CHF Chief complaint: shortness of breath History of present illness: Ms. Lockhart is a 76 year old female with a relevant past medical history of a.fib S/p ablation 2010, mitral regurgitation, sleep apnea, anxiety, GERD, HTN, hyperlipidemia, DM, CEA, CKD stage IV, has LOOP recorder. Patient presented to [facility] with complaints of increased shortness of breath. Patient denies weight gain, however states she has noticed an increase in abdominal girth. Denies peripheral edema. Past Med Surg Social Fam HX - Past Medical History Attestation: Yes The following information was validated with the patient. Source: patient, old records reviewed Medical history: atrial fibrillation, diabetes, GERD, hyperlipidemia, hypertension, renal disease, other Psychiatric history: anxiety - Past Surgical History Surgical History: angioplasty/stent, , orthopedic, other, other - Social History Smoking Status: Former smoker Smokeless Tobacco Status: No Alcohol use: none Drug use: none - Family History Mother Living Status: Hx Family Cardiac Disorders: Yes Medications and Allergies Dronedarone [Multaq] 400 mg PO BID 09/04/15 [History] Furosemide [Lasix] 40 mg PO BID 09/04/15 [History] Glimepiride [Amaryl] 4 mg PO DAILY PRN 09/04/15 [History] Insulin Glargine,Hum.rec.anlog [Lantus Solostar] 32 units SQ HS 09/04/15 [ History] Paricalcitol [Zemplar] 1 mcg PO MOWEFR 09/04/15 [History] Potassium Chloride 20 meq PO DAILY 09/04/15 [History] Sertraline [Zoloft] 50 mg PO DAILY 09/04/15 [History] Warfarin [Coumadin] 5 mg PO SUTUWEFRSA 09/04/15 [History] amLODIPine [Norvasc] 10 mg PO DAILY 09/04/15 [History] Aspirin [Lo-Dose Aspirin EC] 81 mg PO DAILY 11/28/17 [History] Atorvastatin [Lipitor] 40 mg PO HS 11/28/17 [History] Carvedilol [Coreg] 25 mg PO BID 11/28/17 [History] Iron Polysaccharide Complex [Pro Fe] 180 mg PO DAILY 11/28/17 [History] LORazepam [Ativan] 0.5 mg PO HS PRN 11/28/17 [History] Ranolazine [Ranexa] 500 mg PO BID 11/28/17 [History] Warfarin [Coumadin] 2.5 mg PO MOTH 11/28/17 [History] metOLazone [Zaroxolyn] 2.5 mg PO DAILY 11/28/17 [History] 3 Allergy/AdvReac Type Severity Reaction Status Date / Time epinephrine Allergy See Verified 11/28/17 09:46 Comments prednisone Allergy Itching Verified 11/28/17 09:46 Amoxicillin [From Augmentin] AdvReac Nausea Verified 11/28/17 09:46 clavulanic acid AdvReac Nausea Verified 11/28/17 09:46 [From Augmentin] All Systems Review: The remainder of the systems were reviewed and are negative - Cardiovascular Cardiovascular: as per HPI, dyspnea at rest, dyspnea on exertion Physical Examination Vital Signs, Last 4 Hours Temp Pulse Resp BP Pulse Ox 11/30/17 11:16 97.9 F 59 17 140/52 90 General: Conversant, No Apparent Distress HEENT: Atraumatic, Normocephaly, Mucus Membranes Moist Neck: No JVD, Normal carotid pulses Cardiac: Reg Rate and Rhythm, Normal S1 and S2, No Murmur Lungs: Normal Breath Sounds, No Wheeze, Rales, Rhonchi Neuro: Alert and responsive, No focal deficits noted Abdomen: Soft, Non-Tender Skin: No rashes noted on visualized skin Musculoskeletal: No Chest Wall Tenderness Extremities: No Clubbing, No Cyanosis, No Edema, Normal Pulses Results 11/30/17 06:01 11/30/17 06:01 Lab Results Active Medications Acetaminophen (Tylenol) 650 mg PO Q6HR PRN PRN Reason: Mild Pain/Fever Stop: 05/30/18 09:50 Last Admin: 11/30/17 11:20 Dose: 650 mg Albuterol/Ipratropium (Duoneb) 3 ml IH [id number] PRN PRN Reason: Shortness Of Breath/Wheezing Stop: 05/30/18 14:18 Last Admin: 11/29/17 20:04 Dose: 3 ml Amlodipine Besylate (Norvasc) 10 mg PO DAILY JUAN PRN Reason: Protocol Stop: 05/31/18 09:01 Last Admin: 11/30/17 07:50 Dose: 10 mg Aspirin (Aspirin Ec) 81 mg PO DAILY JUAN Stop: 05/31/18 09:01 Last Admin: 11/30/17 07:50 Dose: 81 mg Atorvastatin Calcium (Lipitor) 40 mg PO HS JUAN Stop: 05/30/18 21:01 Last Admin: 11/29/17 20:55 Dose: 40 mg Carvedilol (Coreg) 25 mg PO BIDWM JUAN PRN Reason: Protocol Stop: 05/30/18 17:01 Last Admin: 11/30/17 07:49 Dose: 25 mg Dextrose/Water (Dextrose 50% (Syg)) 25 ml IVP AD PRN PRN Reason: Hypoglycemia Stop: 05/30/18 10:33 Doxycycline Hyclate (Doxycycline) 100 mg PO BID JUAN Stop: 05/30/18 10:01 Last Admin: 11/30/17 07:49 Dose: 100 mg Dronedarone (Multaq) 400 mg PO BID JUAN Stop: 05/30/18 21:01 Last Admin: 11/30/17 07:50 Dose: 400 mg Furosemide (Lasix) 40 mg IVP BIDDIURETIC JUAN Stop: 05/31/18 08:01 Last Admin: 11/30/17 07:51 Dose: 40 mg Glucagon (Glucagen) 1 mg IM ONCE PRN PRN Reason: Hypoglycemia Stop: 05/30/18 10:33 Glucose (Gluctose) 15 gm PO ONCE PRN PRN Reason: Hypoglycemia Stop: 05/30/18 10:33 Glucose (Gluctose) 30 gm PO ONCE PRN PRN Reason: Hypoglycemia Stop: 05/30/18 10:33 Dextrose (Dextrose 5%) 1,000 mls @ 100 mls/hr IVC .Q10H PRN PRN Reason: HYPOGLYCEMIA Stop: 05/30/18 10:33 Ceftriaxone Sodium 2,000 mg/ (Sterile Water) 20 mls @ 600 mls/hr IVP DAILY JUAN Stop: 05/31/18 09:01 Last Admin: 11/30/17 07:51 Dose: 600 mls/hr Potassium Chloride 40 meq/ (Lidocaine 2 ml/ Dextrose) 522 mls @ 130.5 mls/hr IVPB ONCE ONE Stop: 11/30/17 15:15 Last Admin: 11/30/17 13:13 Dose: 130.5 mls/hr Insulin Detemir (Levemir) 20 unit SQ DAILY JUAN Stop: 06/01/18 09:01 Last Admin: 11/30/17 07:51 Dose: Not Given Insulin Human Lispro (Humalog) 0 units SQ HS JUAN PRN Reason: Protocol Stop: 05/30/18 21:01 Last Admin: 11/29/17 23:37 Dose: Not Given Insulin Human Lispro (Humalog) 0 units SQ TIDAC JUAN PRN Reason: Protocol Stop: 05/30/18 11:31 Last Admin: 11/30/17 11:21 Dose: 4 units Lorazepam (Ativan) 0.5 mg PO HS PRN PRN Reason: Sleep Stop: 05/30/18 09:55 Last Admin: 11/29/17 20:55 Dose: 0.5 mg Metolazone (Zaroxolyn) 2.5 mg PO DAILY JUAN Stop: 05/31/18 09:01 Last Admin: 11/30/17 07:50 Dose: 2.5 mg Naloxone HCl (Narcan) 0.4 mg IVP Q2MIN PRN PRN Reason: SEE COMMENTS Stop: 05/30/18 09:50 Paricalcitol (Zemplar) 1 mcg PO MoWeFr@0900 [facility] Stop: 05/30/18 09:01 Last Admin: 11/30/17 07:49 Dose: 1 mcg Potassium Chloride (Potassium Chloride) 20 meq PO DAILY JUAN Stop: 05/31/18 09:01 Last Admin: 11/30/17 07:50 Dose: 20 meq Ranolazine (Ranexa) 500 mg PO BID JUAN Stop: 05/30/18 21:01 Last Admin: 11/30/17 07:50 Dose: 500 mg Sertraline HCl (Zoloft) 50 mg PO DAILY [facility] Stop: 06/01/18 21:01 Warfarin Sodium (Coumadin Perpt) 1 each PO RPHPROT [facility] Stop: 05/30/18 18:01 Warfarin Sodium (Coumadin) 1 mg PO ONCE ONE Stop: 11/30/17 18:01 Laboratory Tests 11/28/17 11/28/17 11/28/17 07:20 07:20 07:20 WBC 20.2 H Hgb INR Potassium Creatinine Troponin I 0.07 H* B-Natriuretic Peptide 365 H 11/28/17 11/28/17 11/30/17 13:18 19:13 06:01 WBC Hgb INR 3.4 Potassium Creatinine Troponin I 0.07 H* 0.06 H* B-Natriuretic Peptide 11/30/17 11/30/17 06:01 06:01 WBC 13.2 H Hgb 10.2 L INR Potassium 2.8 L Creatinine 2.14 H Troponin I B-Natriuretic Peptide - Imaging and Cardiology Chest Xray: report reviewed Echo: report reviewed - EKG Interpretation EKG results cardiology: personally reviewed (ECG with Sinus tachycardia.), other (Telemetry reviewed with average HR previous 12 hours noted to be 64, SR. PVCs and PACs noted.) Consult Discharge Plan - Plan Referrals: Ursula Carlos, TISSUE PACKER [Primary Care Provider] -
[2017-11-30] MEDS ORDERED: *HR* Warfarin 1 MG TABLET PO ONE (18:00)
--- NOTE | 2017-11-30 19:30 | Internal Med Progress Note ---
Date of Encounter: 11/30/17 Time of Encounter: 14:07 - Assessment and plan (1) Pulmonary edema Current Visit: Yes Status: Acute Assessment and plan: Improving. Patient appears to show signs of acute pulmonary edema possibly due to underlying congestive heart failure. Troponins trended down to 0.06. ECHO showed moderate diastolic dysfuntion, moderate mitral regurgitation, and EF of 55%. Cardiology consulted as per below; appreciate input. Continue telemetry. Continue IV Lasix. Continue home PO metolazone. Recheck BMP in AM. Qualifiers: Chronicity: acute Qualified Code(s): J81.0 - Acute pulmonary edema (2) Pneumonia Current Visit: Yes Status: Acute Assessment and plan: Chest x-ray shows bibasilar opacities concerning for infiltrates versus pulmonary edema. Leukocytosis improved again today. Continue Rocephin and doxycycline as patient is on Multaq. Consider deescalating with improvement. Recheck CBC in AM. Qualifiers: Pneumonia type: due to Pneumococcus Laterality: bilateral Lung location: lower lobe of lung Qualified Code(s): J13 - Pneumonia due to Streptococcus pneumoniae (3) Acute diastolic (congestive) heart failure Current Visit: Yes Status: Acute Assessment and plan: ECHO showed moderate diastolic dysfuntion, moderate mitral regurgitation, and EF of 55%. Cardiology consulted; appreciate input. Will follow their recommendations. (4) Chronic kidney disease, stage IV (severe) Current Visit: Yes Status: Chronic Assessment and plan: Renal function at baseline. Cr slightly up today. Follow renal function closely especially as patient is receiving intravenous diuretics. Monitor urine output. Consider nephrology consult if renal function worsens or patient does not have appropriate increase in urine output. Recheck BMP in AM. (5) Atrial fibrillation Current Visit: Yes Status: Chronic Assessment and plan: Currently in NSR. Rate controlled. On Coumadin. Continue MULTAQ. Qualifiers: Atrial fibrillation type: chronic Qualified Code(s): I48.2 - Chronic atrial fibrillation (6) Diabetes Current Visit: Yes Status: Chronic Assessment and plan: Continue accuchecks and SSI QID AC/HS. Continue diabetic diet. Qualifiers: Diabetes mellitus type: type 2 Diabetes mellitus halfway insulin use: with halfway use Chronic kidney disease stage: stage 4 (severe) Qualified Code(s): E11.22 - Type 2 diabetes mellitus with diabetic chronic kidney disease ; N18.4 - Chronic kidney disease, stage 4 (severe); N18.4 - Chronic kidney disease, stage 4 (severe); N18.4 - Chronic kidney disease, stage 4 (severe); N18.4 - Chronic kidney disease, stage 4 (severe); Z79.4 - nursing home (current) use of insulin; Z79.4 - local company intermodal truck driver (current) use of insulin; Z79.4 - local company intermodal truck driver ( current) use of insulin; Z79.4 - nursing home (current) use of insulin (7) Essential hypertension Current Visit: Yes Status: Chronic Assessment and plan: Now normotensive. Continue home medications. (8) Hypokalemia Current Visit: Yes Status: Acute Assessment and plan: K = 2.8 today. Likely secondary to heavy diuresis. Replete today with 40 mEq KCl IV once and 20 mEq KCl PO once today in addition to home KCl 20 mEq PO QD. Recheck BMP in AM and further supplement as necessary. (9) DVT prophylaxis Current Visit: Yes Status: Acute Assessment and plan: On coumadin with supratherapeutic INR, which is improving. Pharmacy managing coumadin. - Time Spent With Patient less than 15 minutes - Subjective Interval history: Patient had no acute events overnight. She states that she continues to get better. She does not want to go home too early. She states she is not SOB anymore. She denies chest pain, fever, or chills. She is eating a little better. She has no new complaints. - Constitutional Vitals: Temp Pulse Resp BP Pulse Ox 98.2 F 56 17 136/55 93 11/30/17 15:51 11/30/17 15:51 11/30/17 15:51 11/30/17 15:51 11/30/17 15:51 General appearance: Present: cooperative, A&O X 3, pleasant, no acute distress, answers questions appropriately - Respiratory Respiratory exam: Present: CTAB. Absent: accessory muscle use, rales, rhonchi, wheezes Additional comments: Normal WOB - Cardiovascular Cardiovascular exam: Present: RRR, +S1, +S2. Absent: diastolic murmur, gallop, rubs, systolic murmur Additional comments: No BLE edema - GI/Abdominal GI/Abdominal exam: Present: normal bowel sounds, soft. Absent: distended, hepatomegaly, mass, splenomegaly, tenderness - Psychiatric Psychiatric exam: Present: normal affect, normal mood. Absent: anxious, depressed - Skin Skin exam: Present: dry, intact, warm. Absent: cyanosis, rash Internal Medicine: Result - Labs CBC & Chem 7: 11/30/17 06:01 11/30/17 06:01 Labs: Short CBC 11/30/17 Range/Units 06:01 WBC 13.2 H (4.3-11.1) K/mcL Hgb 10.2 L (11.5-15.4) g/dL Hct 31.7 L (35.3-44.9) % Plt Count 280 (140-400) K/mcL Neutrophils # 10.5 H (1.6-8.9) K/mcL BMP 11/30/17 06:01 Sodium 141 Potassium 2.8 L Chloride 97 L Carbon Dioxide 34 H BUN 49 H Creatinine 2.14 H Glucose 62 L Calcium 9.8 - ABG Interpretation ABG results: PT/INR, D-dimer PT 37.5 Seconds (9.4-12.1) H 11/30/17 06:01 Consult Discharge Plan - Plan Referrals: Ursula Carlos, CIRCULATION DIRECTOR [Primary Care Provider] -
[2017-11-30] MEDS: *HR* LORazepam 0.5 MG TABLET PO PRN (20:20)
[2017-12-01] MEDS: *HR* LORazepam 0.5 MG TABLET PO PRN ×2 (02:58→21:58)
[2017-12-01 03:47] LABS: Basophils # 0.1 K/mcL (0.0-0.2); Basophils % 0.5 %; Eosinophils # 0.6 K/mcL (0.0-0.6); Eosinophils % 4.7 %; Hemoglobin 10.8 g/dL (11.5-15.4); Immature Granulocytes % 0.9 % (0-4); Lymphocytes # 1.5 K/mcL (0.6-4.6); Lymphocytes % 11.7 %; Mean Corpuscular HGB Conc 32.7 g/dL (31.6-35.5); Mean Corpuscular Hemoglobin 29.1 pg (28.0-33.3); Mean Corpuscular Volume 88.9 fL (83.0-100.0); Mean Platelet Volume 10.9 fL (9.4-12.4); Monocytes # 0.8 K/mcL (0.0-1.3); Monocytes % 6.3 %; Neutrophils # 9.7 K/mcL (1.6-8.9); Platelet Count 292 K/mcL (140-400); Red Blood Count 3.71 M/mcL (3.82-4.97); Red Cell Distribution Width 14.2 % (11.5-14.5); Segmented Neutrophils % 75.9 %
[2017-12-01 03:56] LABS: INR 3.2; Prothrombin Time 35.1 Seconds (9.4-12.1)
[2017-12-01] MEDS: Insulin LISPRO 300 UNITS/3 ML VIAL SQ SCH ×4 (07:34→20:34)
[2017-12-01] MEDS: Aspirin Enteric Coated 81 MG Tablet PO SCH (09:48)
[2017-12-01] MEDS: Furosemide 40 MG/4 ML VIAL IVP SCH ×2 (09:48→15:40)
[2017-12-01] MEDS: Ranolazine 500 MG TAB.ER.12H PO SCH ×2 (09:49→20:42)
[2017-12-01] MEDS: Doxycycline 100 MG CAPSULE PO SCH ×2 (09:49→20:41)
[2017-12-01] MEDS: cefTRIAXone 2,000 MG in Water for inj. (sterile) 20 ML 20 ML IVP SCH (09:50)
[2017-12-01] MEDS: amLODIPine 5 MG TABLET PO SCH (09:50)
[2017-12-01] MEDS: metOLazone 2.5 MG TABLET PO SCH (09:50)
[2017-12-01] MEDS: Insulin DETEMIR 100 UNIT/ML X5UNITS SQ SCH (09:52)
[2017-12-01] MEDS ORDERED: Potassium Chloride 40 MEQ, Lidocaine 1% 2 ML in D5% in Water 500 ML IVPB ONE (14:31)
--- NOTE | 2017-12-01 17:54 | Internal Med Progress Note ---
Date of Encounter: 12/01/17 Time of Encounter: 17:52 - Assessment and plan (1) Pulmonary edema Current Visit: Yes Status: Acute Assessment and plan: Continues to improve slowly; not quite near baseline. Patient appears to show signs of acute pulmonary edema possibly due to underlying congestive heart failure. Troponins trended down to 0.06. ECHO showed moderate diastolic dysfuntion, moderate mitral regurgitation, and EF of 55%. Cardiology consulted as per below; appreciate input. Continue telemetry. Continue IV Lasix; will start titrating down tomorrow with continued improvement. Continue home PO metolazone. Recheck BMP in AM. Qualifiers: Chronicity: acute Qualified Code(s): J81.0 - Acute pulmonary edema (2) Pneumonia Current Visit: Yes Status: Acute Assessment and plan: Chest x-ray shows bibasilar opacities concerning for infiltrates versus pulmonary edema. Leukocytosis continues to improve. Continue Rocephin and doxycycline as patient is on Multaq; will complete full 7-day pneumonia course given continued improvement of leukocytosis. Recheck CBC in AM. Qualifiers: Pneumonia type: due to Pneumococcus Laterality: bilateral Lung location: lower lobe of lung Qualified Code(s): J13 - Pneumonia due to Streptococcus pneumoniae (3) Acute diastolic (congestive) heart failure Current Visit: Yes Status: Acute Assessment and plan: ECHO showed moderate diastolic dysfuntion, moderate mitral regurgitation, and EF of 55%. Cardiology consulted; appreciate input. Will follow their recommendations. (4) Chronic kidney disease, stage IV (severe) Current Visit: Yes Status: Chronic Assessment and plan: Cr slowly trending up while on heavy diuresis; renal function still near baseline range. Will continue to follow renal function closely while patient is receiving intravenous diuretics. Monitor urine output. Consider nephrology consult if renal function worsens or patient does not have appropriate increase in urine output. Recheck BMP in AM. (5) Atrial fibrillation Current Visit: Yes Status: Chronic Assessment and plan: Currently in NSR. Rate controlled. On Coumadin. Continue MULTAQ. Qualifiers: Atrial fibrillation type: chronic Qualified Code(s): I48.2 - Chronic atrial fibrillation (6) Diabetes Current Visit: Yes Status: Chronic Assessment and plan: Continue accuchecks and SSI QID AC/HS. Continue diabetic diet. 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 Continue home medications. (8) Hypokalemia Current Visit: Yes Status: Acute Assessment and plan: Slowly improving. K = 3.0 today. Likely secondary to heavy diuresis. Replete again today with 40 mEq KCl IV once and 20 mEq KCl PO once today in addition to home KCl 20 mEq PO QD. Recheck BMP in AM and further supplement as necessary. (9) DVT prophylaxis Current Visit: Yes Status: Acute Assessment and plan: On coumadin with supratherapeutic INR, which is improving. Pharmacy managing coumadin. - Time Spent With Patient less than 15 minutes - Subjective Interval history: Patient had no acute events overnight. She states she is better again today. She states that she is 50-60% back to her baseline. She denies chest pain, SOB , fever, or chills today. She has no new complaints. She has been qualified for home O2 with [employer]. - Constitutional Vitals: Temp Pulse Resp BP Pulse Ox 97.9 F 63 20 145/72 94 12/01/17 15:11 12/01/17 15:11 12/01/17 15:11 12/01/17 15:11 12/01/17 15:11 General appearance: Present: cooperative, A&O X 3, pleasant, no acute distress, answers questions appropriately - Respiratory Respiratory exam: Present: CTAB. Absent: accessory muscle use, rales, rhonchi, wheezes Additional comments: Normal WOB - Cardiovascular Cardiovascular exam: Present: RRR, +S1, +S2. Absent: diastolic murmur, gallop, rubs, systolic murmur Additional comments: No BLE edema - GI/Abdominal GI/Abdominal exam: Present: normal bowel sounds, soft. Absent: distended, hepatomegaly, mass, splenomegaly, tenderness - Psychiatric Psychiatric exam: Present: normal affect, normal mood. Absent: anxious, depressed - Skin Skin exam: Present: dry, intact, warm. Absent: cyanosis, rash Internal Medicine: Result - Labs CBC & Chem 7: 12/01/17 03:35 12/01/17 03:35 Labs: Short CBC 12/01/17 Range/Units 03:35 WBC 12.7 H (4.3-11.1) K/mcL Hgb 10.8 L (11.5-15.4) g/dL Hct 33.0 L (35.3-44.9) % Plt Count 292 (140-400) K/mcL Neutrophils # 9.7 H (1.6-8.9) K/mcL BMP 12/01/17 03:35 Sodium 139 Potassium 3.0 L Chloride 95 L Carbon Dioxide 34 H BUN 52 H Creatinine 2.36 H Glucose 138 H Calcium 10.0 - ABG Interpretation ABG results: PT/INR, D-dimer PT 35.1 Seconds (9.4-12.1) H 12/01/17 03:35 Consult Discharge Plan - Plan Referrals: Ursula Carlos CNP [Primary Care Provider] -
[2017-12-01] MEDS ORDERED: *HR* Warfarin 1 MG TABLET PO ONE (18:00)
[2017-12-02 05:24] LABS: Basophils # 0.1 K/mcL (0.0-0.2); Basophils % 0.6 %; Eosinophils # 0.9 K/mcL (0.0-0.6); Hematocrit 33.7 % (35.3-44.9); Lymphocytes # 1.7 K/mcL (0.6-4.6); Lymphocytes % 13.6 %; Mean Corpuscular HGB Conc 32.6 g/dL (31.6-35.5); Mean Corpuscular Hemoglobin 29.1 pg (28.0-33.3); Mean Corpuscular Volume 89.2 fL (83.0-100.0); Mean Platelet Volume 11.2 fL (9.4-12.4); Monocytes # 0.9 K/mcL (0.0-1.3); Monocytes % 7.4 %; Neutrophils # 8.7 K/mcL (1.6-8.9); Platelet Count 336 K/mcL (140-400); Red Blood Count 3.78 M/mcL (3.82-4.97); Segmented Neutrophils % 70.4 %
[2017-12-02 05:27] LABS: Calcium 9.9 mg/dL (8.6-10.3); Potassium 3.2 mEq/L (3.5-5.1)
[2017-12-02 05:32] LABS: INR 2.3
[2017-12-02] MEDS: Acetaminophen 325 MG TABLET PO PRN (07:24)
[2017-12-02] MEDS: Insulin DETEMIR 100 UNIT/ML X5UNITS SQ SCH (08:45)
[2017-12-02] MEDS: Insulin LISPRO 300 UNITS/3 ML VIAL SQ SCH ×3 (08:45→18:42)
[2017-12-02] MEDS: Ranolazine 500 MG TAB.ER.12H PO SCH (08:46)
[2017-12-02] MEDS: Aspirin Enteric Coated 81 MG Tablet PO SCH (08:46)
[2017-12-02] MEDS: Doxycycline 100 MG CAPSULE PO SCH (08:46)
[2017-12-02] MEDS: metOLazone 2.5 MG TABLET PO SCH (08:46)
[2017-12-02] MEDS: Furosemide 40 MG/4 ML VIAL IVP SCH ×2 (08:47→19:01)
[2017-12-02] MEDS: cefTRIAXone 2,000 MG in Water for inj. (sterile) 20 ML 20 ML IVP SCH (08:47)
[2017-12-02] MEDS: amLODIPine 5 MG TABLET PO SCH (08:47)
[2017-12-02 16:41] VITALS: BP 145/46
--- NOTE | 2017-12-02 17:57 | Discharge Summary ---
- NOTES TO OUTPATIENT PROVIDER Notes to Outpatient Provider: Follow up with PCP in 2-3 days after discharge. Recheck BMP at follow up (hypokalemia and CKD). Follow up with director of early childhood as directed. Follow up with cardiology as directed. Orders not resulted at time of discharge: Pending orders 11/28/17 08:04 Culture,Blood [BC] Routine 12/03/17 04:00 PT/INR [Prothrombin Time INR] [COAG] AM 0400 Date of Encounter: 12/02/17 Time of Encounter: 17:54 - Discharge Diagnosis (1) Pulmonary edema Priority: Primary Status: Acute Qualifiers: Chronicity: acute Qualified Code(s): J81.0 - Acute pulmonary edema (2) Pneumonia Priority: Secondary Status: Acute Qualifiers: Pneumonia type: due to Pneumococcus Laterality: bilateral Lung location: lower lobe of lung Qualified Code(s): J13 - Pneumonia due to Streptococcus pneumoniae (3) Acute diastolic (congestive) heart failure Priority: Secondary Status: Acute (4) Chronic kidney disease, stage IV (severe) Priority: Secondary Status: Chronic (5) Atrial fibrillation Priority: Secondary Status: Chronic Qualifiers: Atrial fibrillation type: chronic Qualified Code(s): I48.2 - Chronic atrial fibrillation (6) Diabetes Priority: Secondary Status: Chronic Qualifiers: Diabetes mellitus type: type 2 Diabetes mellitus bath attendant insulin use: with bath attendant use Chronic kidney disease stage: stage 4 (severe) Qualified Code(s): E11.22 - Type 2 diabetes mellitus with diabetic chronic kidney disease ; N18.4 - Chronic kidney disease, stage 4 (severe); N18.4 - Chronic kidney disease, stage 4 (severe); N18.4 - Chronic kidney disease, stage 4 (severe); N18.4 - Chronic kidney disease, stage 4 (severe); Z79.4 - director staffing (current) use of insulin; Z79.4 - [facility] (current) use of insulin; Z79.4 - [facility] ( current) use of insulin; Z79.4 - [facility] (current) use of insulin (7) Essential hypertension Priority: Secondary Status: Chronic (8) Hypokalemia Priority: Secondary Status: Acute (9) DVT prophylaxis Priority: Secondary Status: Acute Hospital course: Ms. Lockhart is a 76 year old female admitted for pulmonary edema and suspected pneumonia. She was admitted to general medical floor with telemetry. She was started on IV lasix 40 mg BID in addition to her home PO metolazone. She diuresed well throughout admission. Fluid overload was suspected to be due to acute diastolic CHF, based on ECHO. Cardiology was consulted. They recommended routine heart failure interventions, including low sodium diet, exercise, blood pressure control, weight loss, and 2L daily fluid restriction. They agreed with diuresis as tolerated. Patient improved daily with regards to her breathing. She was started on IV rocephin and doxycycline for her pneumonia. She will be discharged with 3 more days of each for total 7 days. All other home medications will be continued at discharge. She has history of CKD, and Cr is at baseline on day of discharge. She will follow up with PCP in 2-3 days after discharge. BMP can be rechecked at that time to monitor hypokalemia and CKD. She will follow up with nephrology and cardiology as directed. She has been qualified for home O2 during this hospitalization, and she will use it PRN 2-4 L by LA. Patient has met maximum benefit of this hospitalization and will be discharged home in stable condition. Discharge discussed with: patient, family, nurse - Time Spent with Patient Total time spent providing and/or coordinating discharge services: Greater than 30 minutes - Discharge Medications Prescriptions: Cefdinir [Omnicef] 300 mg PO BID 3 Days #5 capsule Doxycycline 100 mg PO BID 3 Days #5 capsule Home Medications: Dronedarone [Multaq] 400 mg PO BID 09/04/15 [History] Furosemide [Lasix] 40 mg PO BID 09/04/15 [History] Glimepiride [Amaryl] 4 mg PO DAILY PRN 09/04/15 [History] Insulin Glargine,Hum.rec.anlog [Lantus Solostar] 32 units SQ HS 09/04/15 [ History] Paricalcitol [Zemplar] 1 mcg PO MOWEFR 09/04/15 [History] Potassium Chloride 20 meq PO DAILY 09/04/15 [History] Sertraline [Zoloft] 50 mg PO DAILY 09/04/15 [History] Warfarin [Coumadin] 5 mg PO SUTUWEFRSA 09/04/15 [History] amLODIPine [Norvasc] 10 mg PO DAILY 09/04/15 [History] Aspirin [Lo-Dose Aspirin EC] 81 mg PO DAILY 11/28/17 [History] Atorvastatin [Lipitor] 40 mg PO HS 11/28/17 [History] Carvedilol [Coreg] 25 mg PO BID 11/28/17 [History] Iron Polysaccharide Complex [Pro Fe] 180 mg PO DAILY 11/28/17 [History] LORazepam [Ativan] 0.5 mg PO HS PRN 11/28/17 [History] Ranolazine [Ranexa] 500 mg PO BID 11/28/17 [History] Warfarin [Coumadin] 2.5 mg PO MOTH 11/28/17 [History] metOLazone [Zaroxolyn] 2.5 mg PO DAILY 11/28/17 [History] Cefdinir [Omnicef] 300 mg PO BID 3 Days #5 capsule 12/02/17 [Rx] Doxycycline 100 mg PO BID 3 Days #5 capsule 12/02/17 [Rx] Allergies/Adverse Reactions: 3 Allergy/AdvReac Type Severity Reaction Status Date / Time epinephrine Allergy See Verified 11/28/17 09:46 Comments prednisone Allergy Itching Verified 11/28/17 09:46 Amoxicillin [From Augmentin] AdvReac Nausea Verified 11/28/17 09:46 clavulanic acid AdvReac Nausea Verified 11/28/17 09:46 [From Augmentin] Date of admission: 11/28/17 09:49 Primary care physician: Ursula Carlos CNP Consults: 11/30/17 13:11 Consult to Cardiology [CONS] Routine Comment: Consulting Provider: Cardiology Domonique Reason for Consult: ?New onset acute diastolic congestive heart failure Call Completed: No Discharging clinician: Adarsh Wallace Anticipated date of discharge: 12/02/17 - Constitutional Vitals: Temp Pulse Resp BP Pulse Ox 98.1 F 59 18 145/46 99 12/02/17 16:39 12/02/17 16:39 12/02/17 16:39 12/02/17 16:39 12/02/17 16:39 General appearance: Present: cooperative, A&O X 3, pleasant, no acute distress, answers questions appropriately - Respiratory Respiratory exam: Present: CTAB. Absent: accessory muscle use, rales, rhonchi, wheezes Additional comments: Normal WOB - Cardiovascular Cardiovascular exam: Present: RRR, +S1, +S2. Absent: diastolic murmur, gallop, rubs, systolic murmur Additional comments: No BLE edema - GI/Abdominal GI/Abdominal exam: Present: normal bowel sounds, soft. Absent: distended, hepatomegaly, mass, splenomegaly, tenderness - Psychiatric Psychiatric exam: Present: normal affect, normal mood. Absent: anxious, depressed - Skin Skin exam: Present: dry, intact, warm. Absent: cyanosis, rash - Patient Status Disposition: Home, Self-Care Condition: Good Functional capacity at discharge: independent ambulation Overall status at discharge: patient is progressing back to baseline - Discharge Instructions Follow Up With: Ursula Carlos SOCIAL SECURITY SPECIALIST [Primary Care Provider] - Additional Instructions: Follow up with PCP in 2-3 days after discharge. Recheck BMP at follow up ( hypokalemia and CKD). Follow up with director of early childhood as directed. Follow up with cardiology as directed. - Diet and Activity Activity: resume usual activities as tolerated Diet: diabetic diet, low fat, low cholesterol, low salt diet, other (Cardiac, Renal) - VTE Documentation of Mechanical Device: Graduated compression elastic hosiery
[2017-12-02] MEDS ORDERED: *HR* Warfarin 5 MG TABLET PO ONE (18:00)
[2017-12-03] MEDS ORDERED: Furosemide 40 MG TABLET PO SCH (08:00)
== END 2017-12-02 20:09 | disposition home or self-care (01) | DRG 291 ==
LOC: 2ANU 07:11 → EMEROO 07:11 → 2ANU 09:34
PROVIDERS: ADMIT Internal Medicine; ATTEND Internal Medicine

== ENCOUNTER 2019-05-29 16:08 | Inpatient (IN) ==
--- NOTE | 2019-05-29 16:40 | Emergency Department Note ---
Disposition Clinical Impression: NSTEMI (non-ST elevated myocardial infarction) Congestive heart failure Qualifiers: Heart failure type: unspecified Heart failure chronicity: unspecified Qualified Code(s): I50.9 - Heart failure, unspecified Chronic kidney disease Qualifiers: Chronic kidney disease stage: stage 5, not on chronic dialysis Qualified Code(s): N18.5 - Chronic kidney disease, stage 5 Disposition: Admitted As Inpatient Condition: Fair Referrals: Ursula Carlos, ELECTRIC REFRIGERATOR SERVICER [Primary Care Provider] - Forms: ED Satisfaction Letter Time of Disposition: 18:26 SOB HPI - General Chief Complaint: ED Shortness of Breath/Dyspnea Stated Complaint: pneumonia/bre Time Seen by Provider: 05/29/19 16:37 Source: patient, family Mode of arrival: ambulatory Limitations: no limitations Nursing Notes Reviewed: Yes Vital Signs Reviewed: Yes - History of Present Illness 78-year-old female past medical history of end-stage renal disease recent AV fistula placed in the left antecubital fossa in preparation for dialysis. History of CHF, diabetes. Patient currently taking Lasix but has decreased her dose as she has felt very weak and lightheaded and dizzy for the past week and did not want to be making additional trip to the bathroom. Patient admits to fever/chills in addition the symptoms mentioned above as well as shortness of breath but denies any other concerns or complaints at this time. Pulmonary initial evaluation the ED the patient is sitting upright in hospital bed she is awake, alert, engaged conversation answering questions appropriately without conversational dyspnea. She appears to have increased work of breathing without overt respiratory distress. She is currently on oxygen via nasal cannula and satting in the mid 90s on the monitor. Her skin appears normal color and is warm dry and intact. Her left antecubital fossa notes diffuse bruising consistent with AV fistula formation, site otherwise looks clean dry and will bandage. Cardiopulmonary auscultation reveals diffuse rhonchi in the right lung as well as a mild 2/6 systolic murmur. Patient's abdomen soft nontender nondistended she has 2+ pitting edema bilateral lower extremities which appear tight and fluid overloaded. Patient was otherwise hemodynamically stable this time. Pt Subjective Complaint: shortness of breath Onset (ago): week(s) Severity: moderate Consistency/Duration: gradually worsening Known history of: congestive heart failure, diabetes, other (cHF) Treatment prior to arrival: oxygen Cough present: No - Related Data Home oxygen amount: other (5 L/m) Home Medications Medication Instructions Recorded Confirmed Insulin Glargine,Hum.rec.anlog 35 units SQ HS 09/04/15 05/29/19 [Lantus Solostar] Paricalcitol [Zemplar] 1 mcg PO MOWEFR@0900 09/04/15 05/29/19 Potassium Chloride 20 meq PO DAILY 09/04/15 05/29/19 Sertraline [Zoloft] 50 mg PO DAILY 09/04/15 05/29/19 Warfarin [Coumadin] 2.5 mg PO SUTUWETHSA@1800 09/04/15 05/29/19 Atorvastatin [Lipitor] 40 mg PO HS 11/28/17 05/29/19 Iron Polysaccharide Complex [Pro 180 mg PO DAILY@0800 11/28/17 05/29/19 Fe] LORazepam [Ativan] 0.5 mg PO BID PRN 11/28/17 05/29/19 Warfarin [Coumadin] 5 mg PO MOFR@1800 11/28/17 05/29/19 metOLazone [Zaroxolyn] 2.5 mg PO DAILY 11/28/17 05/29/19 Acetaminophen/Diphenhydramine 1 each PO HS PRN 11/09/18 05/29/19 [Acetaminophen Pm Caplet] Amiodarone [Cordarone] 200 mg PO BID 11/09/18 05/29/19 Furosemide [Lasix] 40 mg PO 1700 11/09/18 05/29/19 Furosemide [Lasix] 60 mg PO 0800 11/09/18 05/29/19 Multivit-Minerals/Folic Acid 0.4 mg PO DAILY 11/09/18 05/29/19 [Adult One Daily Multivit Tab] Mupirocin [Bactroban Oint] 1 appl TP BID 11/09/18 05/29/19 Spironolactone [Aldactone] 25 mg PO DAILY 11/09/18 05/29/19 Previous Rx's Medication Instructions Recorded Sulfamethoxazole/Trimeth DS 1 each PO BID #20 tablet 11/03/18 [Bactrim DS] Allergies Allergy/AdvReac Type Severity Reaction Status Date / Time epinephrine Allergy See Verified 11/28/17 09:46 Comments prednisone Allergy Itching Verified 11/28/17 09:46 Amoxicillin [From Augmentin] AdvReac Nausea Verified 11/28/17 09:46 clavulanic acid AdvReac Nausea Verified 11/28/17 09:46 [From Augmentin] Review of Systems: *See History of Present Illness for more detail Constitutional: Admits: fever, chills Cardiovascular: Denies: chest pain Respiratory: Admits: dyspnea, denies: cough, hemoptysis Gastrointestinal: Denies: abdominal pain, nausea, vomiting, diarrhea, constipation, hematemesis, melena, hematochezia Genitourinary: Denies: hematuria Musculoskeletal: Denies: back pain, neck pain Integumentary: Denies: rash Neurological: Admits: headache, weakness, lightheadedness/dizziness, denies: numbness, paresthesias, difficulty with ambulation. Endocrine: Admits: fatigue All systems ED: reviewed and negative except as stated. Review of Systems: As Per HPI Past Medical History - Past Medical History Medical history: Reports: atrial fibrillation, diabetes, GERD, hyperlipidemia, hypertension, renal disease, other Surgical history: Reports: angioplasty/stent, , orthopedic, other, other Psychiatric history: Reports: anxiety - Social History Smoking Status: Former smoker Smokeless Tobacco Status: No Alcohol use: Reports: none Drug use: Reports: none Physical Exam Constitutional: Patient is in mild to moderate distress due to respiratory status, she is otherwise [id number], engaged to conversation, speech is fluid, answers questions appropriately Neuro: GCS 15, no overt focal neurological deficits Head: Atraumatic, normocephalic Eyes: Pupils equal, round and reactive to light, no scleral icterus, no conjunctival injection Neck: Trachea midline without deviation. Anterior neck is supple without swelling. *Chest: Symmetric chest wall rise *Heart: Cardiac rhythm and rate are regular with S1 and S2 , no S3 or S4 appreciated, systolic murmur noted 2 out of 6. *Lungs: Rhonchi noted in the right lung field, accessory muscle use Abdomen: Abdomen is obese, soft to palpation, normal bowel sounds. No abdominal bruit auscultated. Non-distended, non-rigid, no organomegaly, no ascites appreciated. No pulsatile mass, no tenderness or guarding to palpation in all four quadrants, no rebound Extremities: Normal capillary refill without evidence of pedal edema, joint swelling or erythema. Pulses/motor intact in all 4 extremities. Psychiatric exam: Patient displays a normal affect and mood for the environment. No overt signs of hallucination. Integumentary: warm, dry, intact, normal color. No rash, cyanosis, diaphoresis, erythema, or pallor - General Limitations: no limitations General appearance: alert, in no apparent distress Course Course Narrative: Concern for cardiac versus respiratory pathology. Basic labs to include CBC, BMP, EKG/old EKG, troponin, BNP, chest x-ray, lactic acid blood cultures I will give aspirin for cardiac prophylaxis at this time. Vital Signs Temperature 98.7 F 05/29/19 16:14 Pulse Rate 90 05/29/19 16:14 Respiratory Rate 20 05/29/19 16:14 Blood Pressure 166/63 05/29/19 16:14 O2 Sat by Pulse Oximetry 100 05/29/19 16:14 Temperature 98.7 F 05/29/19 16:14 Pulse Rate 61 05/29/19 18:14 Respiratory Rate 24 05/29/19 18:14 Blood Pressure 152/70 05/29/19 18:14 O2 Sat by Pulse Oximetry 90 05/29/19 18:14 Oxygen Delivery Oxygen Delivery Nasal Cannula Shortness of Breath/Dyspnea - [facility] Narrative Medical decision making narrative: The patient's EKG shows a 1 mm elevation in lead aVR with diffuse depressions in the inferior lateral leads as noted below. Troponin is elevated at 0.21, I spoke with Dr. Abdulaziz Callaway who advises beginning this patient on heparin and admitted to hospitalist medicine service with cardiology consult for further evaluation and management of NSTEMI. Patient does have a slightly elevated white count at 14.1, creatinine appears to be at baseline, chest x-ray consistent with congestive heart failure. Otherwise negative workup, patient will be admitted to hospital medicine service with cardiology consult as listed above for further evaluation and management. This information was discussed with the patient and her at bedside verbalized understanding and agreement with this course of action. - Lab Data Lab results reviewed: Yes I reviewed the patient's lab results. Result diagrams: 05/29/19 16:50 05/29/19 16:50 Lab Results 05/29/19 05/29/19 05/29/19 Range/Units 16:50 16:50 16:50 WBC 14.6 H (4.3-11.1) K/mcL RBC 3.73 L (3.82-4.97) M/mcL Hgb 11.2 L (11.5-15.4) g/dL Hct 35.4 (35.3-44.9) % MCV 94.9 (83.0-100.0) fL MCH 30.0 (28.0-33.3) pg MCHC 31.6 (31.6-35.5) g/dL RDW 14.2 (11.5-14.5) % Plt Count 297 (140-400) K/mcL MPV 12.2 (9.4-12.4) fL Immature Gran % 1.0 (0-4) % Seg Neutrophils % 84.1 % Lymphocytes % 6.2 % Monocytes % 7.0 % Eosinophils % 1.2 % Basophils % 0.5 % Neutrophils # 12.3 H (1.6-8.9) K/mcL Lymphocytes # 0.9 (0.6-4.6) K/mcL Monocytes # 1.0 (0.0-1.3) K/mcL Eosinophils # 0.2 (0.0-0.6) K/mcL Basophils # 0.1 (0.0-0.2) K/mcL Nucleated RBCs/100 WBC 0.1 H (0) /100 WBC Sodium 136 (136-145) mEq/L Potassium 4.0 (3.5-5.1) mEq/L Chloride 97 L (98-107) mEq/L Carbon Dioxide 25 (23-29) mEq/L BUN 84 H (8-23) mg/dL Creatinine 3.41 H (0.60-1.20) mg/dL Est GFR ( Amer) 16 L (> 60) Est GFR (Non-Af Amer) 13 L (> 60) BUN/Creatinine Ratio 25 (6-26) Glucose 83 (70-105) mg/dL Calculated Osmolality 307 H (280-300) Lactic Acid (0.5-2.2) mmol/L Calcium 10.0 (8.6-10.3) mg/dL Troponin I 0.21 H* (< 0.04) ng/mL B-Natriuretic Peptide 486 H (Less than 100) pg/mL 05/29/19 Range/Units 16:50 WBC (4.3-11.1) K/mcL RBC (3.82-4.97) M/mcL Hgb (11.5-15.4) g/dL Hct (35.3-44.9) % MCV (83.0-100.0) fL MCH (28.0-33.3) pg MCHC (31.6-35.5) g/dL RDW (11.5-14.5) % Plt Count (140-400) K/mcL MPV (9.4-12.4) fL Immature Gran % (0-4) % Seg Neutrophils % % Lymphocytes % % Monocytes % % Eosinophils % % Basophils % % Neutrophils # (1.6-8.9) K/mcL Lymphocytes # (0.6-4.6) K/mcL Monocytes # (0.0-1.3) K/mcL Eosinophils # (0.0-0.6) K/mcL Basophils # (0.0-0.2) K/mcL Nucleated RBCs/100 WBC (0) /100 WBC Sodium (136-145) mEq/L Potassium (3.5-5.1) mEq/L Chloride (98-107) mEq/L Carbon Dioxide (23-29) mEq/L BUN (8-23) mg/dL Creatinine (0.60-1.20) mg/dL Est GFR ( Amer) (> 60) Est GFR (Non-Af Amer) (> 60) BUN/Creatinine Ratio (6-26) Glucose (70-105) mg/dL Calculated Osmolality (280-300) Lactic Acid 1.7 (0.5-2.2) mmol/L Calcium (8.6-10.3) mg/dL Troponin I (< 0.04) ng/mL B-Natriuretic Peptide (Less than 100) pg/mL - Radiology Data Radiology results reviewed: Yes I reviewed the patient's radiology results. Chest X-Ray 05/29/19 17:11 IMPRESSION: Findings suggest congestive heart failure D/ / Doe Rush MD / Doe Rush MD Interpreting Provider: Doe Rush MD - EKG Data EKG attestation: Yes I reviewed and interpreted this EKG. EKG results narrative: The patients EKG shows a junctional rhythm at a computer analyzed rate of 65 beats per minute, a QRS duration of 88 milliseconds, a QT/QTc interval of 404 / 420 milliseconds respectively. There is an approximate [address] segment elev ation noted in lead aVR with diffuse depressions noted throughout the inferior lateral leads most pronounced in V4 through V6. There are alterations of the T wave which appear biphasic in nature diffusely which are new from prior examination. This EKG that was performed today did not for significantly from prior EKG morphology that was conducted on 11/08/2018. Attestation Statement - Attestation Attestation: Yuliet Langley D.O., examined this patient and my medical decision-making was reviewed with the Resident Physician. I agree with the documented findings, disposition and treatment plan as described except to the extent set forth below.
[2019-05-29] MEDS ORDERED: Aspirin 81 MG TAB.CHEW PO STA (17:03)
[2019-05-29 17:12] LABS: Basophils # 0.1 K/mcL (0.0-0.2); Basophils % 0.5 %; Eosinophils # 0.2 K/mcL (0.0-0.6); Eosinophils % 1.2 %; Hematocrit 35.4 % (35.3-44.9); Hemoglobin 11.2 g/dL (11.5-15.4); Lymphocytes # 0.9 K/mcL (0.6-4.6); Lymphocytes % 6.2 %; Mean Corpuscular HGB Conc 31.6 g/dL (31.6-35.5); Mean Corpuscular Volume 94.9 fL (83.0-100.0); Mean Platelet Volume 12.2 fL (9.4-12.4); Neutrophils # 12.3 K/mcL (1.6-8.9); Nucleated Red Blood Cells 0.1 /100 WBC (0); Platelet Count 297 K/mcL (140-400); Red Blood Count 3.73 M/mcL (3.82-4.97); Red Cell Distribution Width 14.2 % (11.5-14.5); Segmented Neutrophils % 84.1 %; White Blood Count 14.6 K/mcL (4.3-11.1)
--- NOTE | 2019-05-29 17:32 | Emergency Department Note ---
Disposition Clinical Impression: NSTEMI (non-ST elevated myocardial infarction) Congestive heart failure Qualifiers: Heart failure type: unspecified Heart failure chronicity: unspecified Qualified Code(s): I50.9 - Heart failure, unspecified Chronic kidney disease Qualifiers: Chronic kidney disease stage: stage 5, not on chronic dialysis Qualified Code(s): N18.5 - Chronic kidney disease, stage 5 Disposition: Admitted As Inpatient Condition: Fair Referrals: Ursula Carlos, [employer] [Primary Care Provider] - Forms: ED Satisfaction Letter Time of Disposition: 18:40 General Adult HPI - General Chief complaint: ED Shortness of Breath/Dyspnea Stated complaint: pneumonia/bre Time Seen by Provider: 05/29/19 16:37 Source: patient, family Mode of arrival: ambulatory Limitations: no limitations - History of Present Illness Pain Scale: 0 - Related Data Home Medications Medication Instructions Recorded Confirmed Insulin Glargine,Hum.rec.anlog 35 units SQ HS 09/04/15 05/29/19 [Lantus Solostar] Paricalcitol [Zemplar] 1 mcg PO MOWEFR@0900 09/04/15 05/29/19 Potassium Chloride 20 meq PO DAILY 09/04/15 05/29/19 Sertraline [Zoloft] 50 mg PO DAILY 09/04/15 05/29/19 Warfarin [Coumadin] 2.5 mg PO SUTUWETHSA@1800 09/04/15 05/29/19 Atorvastatin [Lipitor] 40 mg PO HS 11/28/17 05/29/19 Iron Polysaccharide Complex [Pro 180 mg PO DAILY@0800 11/28/17 05/29/19 Fe] LORazepam [Ativan] 0.5 mg PO BID PRN 11/28/17 05/29/19 Warfarin [Coumadin] 5 mg PO MOFR@1800 11/28/17 05/29/19 metOLazone [Zaroxolyn] 2.5 mg PO DAILY 11/28/17 05/29/19 Acetaminophen/Diphenhydramine 1 each PO HS PRN 11/09/18 05/29/19 [Acetaminophen Pm Caplet] Amiodarone [Cordarone] 200 mg PO BID 11/09/18 05/29/19 Furosemide [Lasix] 40 mg PO 1700 11/09/18 05/29/19 Furosemide [Lasix] 60 mg PO 0800 11/09/18 05/29/19 Multivit-Minerals/Folic Acid 0.4 mg PO DAILY 11/09/18 05/29/19 [Adult One Daily Multivit Tab] Mupirocin [Bactroban Oint] 1 appl TP BID 11/09/18 05/29/19 Spironolactone [Aldactone] 25 mg PO DAILY 11/09/18 05/29/19 Previous Rx's Medication Instructions Recorded Sulfamethoxazole/Trimeth DS 1 each PO BID #20 tablet 11/03/18 [Bactrim DS] Allergies Allergy/AdvReac Type Severity Reaction Status Date / Time epinephrine Allergy See Verified 11/28/17 09:46 Comments prednisone Allergy Itching Verified 11/28/17 09:46 Amoxicillin [From Augmentin] AdvReac Nausea Verified 11/28/17 09:46 clavulanic acid AdvReac Nausea Verified 11/28/17 09:46 [From Augmentin] Past Medical History - Past Medical History Medical history: Reports: atrial fibrillation, diabetes, GERD, hyperlipidemia, hypertension, renal disease, other Surgical history: Reports: angioplasty/stent, , orthopedic, other, other Psychiatric history: Reports: anxiety - Social History Smoking Status: Former smoker Smokeless Tobacco Status: No Alcohol use: Reports: none Drug use: Reports: none Physical Exam - General Limitations: no limitations General appearance: alert, in no apparent distress Course Vital Signs Temperature 98.7 F 05/29/19 16:14 Pulse Rate 90 05/29/19 16:14 Respiratory Rate 20 05/29/19 16:14 Blood Pressure 166/63 05/29/19 16:14 O2 Sat by Pulse Oximetry 100 05/29/19 16:14 Temperature 98.7 F 05/29/19 16:14 Pulse Rate 61 05/29/19 18:14 Respiratory Rate 24 05/29/19 18:14 Blood Pressure 152/70 05/29/19 18:14 O2 Sat by Pulse Oximetry 90 05/29/19 18:14 Oxygen Delivery Oxygen Delivery Nasal Cannula Medical Decision Making - Lab Data Result diagrams: 05/29/19 16:50 05/29/19 16:50 Lab Results 05/29/19 05/29/19 05/29/19 Range/Units 16:50 16:50 16:50 WBC 14.6 H (4.3-11.1) K/mcL RBC 3.73 L (3.82-4.97) M/mcL Hgb 11.2 L (11.5-15.4) g/dL Hct 35.4 (35.3-44.9) % MCV 94.9 (83.0-100.0) fL MCH 30.0 (28.0-33.3) pg MCHC 31.6 (31.6-35.5) g/dL RDW 14.2 (11.5-14.5) % Plt Count 297 (140-400) K/mcL MPV 12.2 (9.4-12.4) fL Immature Gran % 1.0 (0-4) % Seg Neutrophils % 84.1 % Lymphocytes % 6.2 % Monocytes % 7.0 % Eosinophils % 1.2 % Basophils % 0.5 % Neutrophils # 12.3 H (1.6-8.9) K/mcL Lymphocytes # 0.9 (0.6-4.6) K/mcL Monocytes # 1.0 (0.0-1.3) K/mcL Eosinophils # 0.2 (0.0-0.6) K/mcL Basophils # 0.1 (0.0-0.2) K/mcL Nucleated RBCs/100 WBC 0.1 H (0) /100 WBC Sodium 136 (136-145) mEq/L Potassium 4.0 (3.5-5.1) mEq/L Chloride 97 L (98-107) mEq/L Carbon Dioxide 25 (23-29) mEq/L BUN 84 H (8-23) mg/dL Creatinine 3.41 H (0.60-1.20) mg/dL Est GFR ( Amer) 16 L (> 60) Est GFR (Non-Af Amer) 13 L (> 60) BUN/Creatinine Ratio 25 (6-26) Glucose 83 (70-105) mg/dL Calculated Osmolality 307 H (280-300) Lactic Acid (0.5-2.2) mmol/L Calcium 10.0 (8.6-10.3) mg/dL Troponin I 0.21 H* (< 0.04) ng/mL B-Natriuretic Peptide 486 H (Less than 100) pg/mL 05/29/19 Range/Units 16:50 WBC (4.3-11.1) K/mcL RBC (3.82-4.97) M/mcL Hgb (11.5-15.4) g/dL Hct (35.3-44.9) % MCV (83.0-100.0) fL MCH (28.0-33.3) pg MCHC (31.6-35.5) g/dL RDW (11.5-14.5) % Plt Count (140-400) K/mcL MPV (9.4-12.4) fL Immature Gran % (0-4) % Seg Neutrophils % % Lymphocytes % % Monocytes % % Eosinophils % % Basophils % % Neutrophils # (1.6-8.9) K/mcL Lymphocytes # (0.6-4.6) K/mcL Monocytes # (0.0-1.3) K/mcL Eosinophils # (0.0-0.6) K/mcL Basophils # (0.0-0.2) K/mcL Nucleated RBCs/100 WBC (0) /100 WBC Sodium (136-145) mEq/L Potassium (3.5-5.1) mEq/L Chloride (98-107) mEq/L Carbon Dioxide (23-29) mEq/L BUN (8-23) mg/dL Creatinine (0.60-1.20) mg/dL Est GFR ( Amer) (> 60) Est GFR (Non-Af Amer) (> 60) BUN/Creatinine Ratio (6-26) Glucose (70-105) mg/dL Calculated Osmolality (280-300) Lactic Acid 1.7 (0.5-2.2) mmol/L Calcium (8.6-10.3) mg/dL Troponin I (< 0.04) ng/mL B-Natriuretic Peptide (Less than 100) pg/mL Critical Care Time Critical Care Time: Yes Total Critical Care Time: 35 Attestation: Critical care time excluding separately billable procedures of 35 minutes given the patient's abnormal labs, NSTEMI management, initiation of heparin drip as well as consultation with specialty services arrangement for admission. Attestation Statement - Attestation Attestation: Yuliet Langley D.O., examined this patient and my medical decision-making was reviewed with the Resident Physician. I agree with the documented findings, disposition and treatment plan as described except to the extent set forth below. 78-year-old female history of CAD, CHF who presents with a chief complaint of concern for pneumonia. Patient states she saw her primary care provider today. States that they told her to come here and that they thought she had pneumonia. No imaging was obtained. She reports shortness of breath for the last several days. She decreased her Lasix dose lately. She also is status post fistula placement in her left arm several days ago in anticipation for dialysis. She reports subjective fevers and chills at home. No chest pain. No other complaints. General: Alert, no acute distress HENT: Normocephalic, Atraumatic Neck: No JVD Cardiovascular: Regular rate and rhythm. No appreciable murmurs Respiratory: Diminished breath sounds bilaterally with mild rhonchi. Abdominal: Soft, non tender. No peritoneal findings Extremities: Mild peripheral edema Neuro: Alert, Mentating appropriately, No focal deficits Skin: Warm, Dry Plan: EKG, chest x-ray and labs. At this point gestalt is congestive heart fail ure versus developing pneumonia. ED Procedure Note: EKG interpretation - I agree with the resident physician's documentation and interpretation of the patient's EKG. Junctional rhythm with rate of 65 beats or minute. Normal axis. Normal intervals. Poor R wave progression. She has inferior and lateral ST depressions. Changes from previous EKG include ST depressions in the lateral leads when compared to EKG on 11/08/18. Imaging labs reviewed. X-ray consistent with volume overload. Troponin is elevated 0.21. She has no ischemic changes on her EKG. She is chest pain-free. Resident physician spoke with cardiology. Patient will begin on heparin. Admitted to the hospitalist service with cardiology consultation.
[2019-05-29 17:37] LABS: Troponin I 0.21 ng/mL (< 0.04)
[2019-05-29] MEDS ORDERED: *HR* Heparin 5,000 UNIT/ML VIAL IVP PRN ×4 (18:23→20:01)
[2019-05-29] MEDS ORDERED: *HR* Heparin 5,000 UNIT/ML VIAL IVP ONE ×2 (18:23→20:01)
[2019-05-29] MEDS ORDERED: Heparin 25,000 UNIT/250 ML D5W 25,000 UNIT/250 ML IV.SOLN IVC SCH (18:30)
[2019-05-29 18:52] LABS: Hematocrit 34.1 % (35.3-44.9); Hemoglobin 10.8 g/dL (11.5-15.4); Mean Corpuscular HGB Conc 31.7 g/dL (31.6-35.5); Mean Corpuscular Hemoglobin 29.8 pg (28.0-33.3); Mean Corpuscular Volume 94.2 fL (83.0-100.0); Mean Platelet Volume 11.8 fL (9.4-12.4); Platelet Count 275 K/mcL (140-400); Red Blood Count 3.62 M/mcL (3.82-4.97); Red Cell Distribution Width 14.1 % (11.5-14.5); White Blood Count 13.2 K/mcL (4.3-11.1)
[2019-05-29 19:06] LABS: Heparin anti-factor XA UFH 0.03 IU/mL (0.30-0.70); INR 1.6; Prothrombin Time 18.7 Seconds (9.4-12.1)
[2019-05-29] MEDS ORDERED: Furosemide 40 MG/4 ML VIAL IVP ONE (19:47)
[2019-05-29] MEDS ORDERED: Dextrose Gel 15 GM/37.5 ML TUBE PO PRN ×2 (20:08→23:59)
--- NOTE | 2019-05-29 20:26 | Internal Med History&Physical ---
Date of Encounter: 05/29/19 Time of Encounter: 20:24 Internal Medicine - H&P: HPI Chief complaint: weakness and sob Admitted From: Home Plans for Post Hospital Care: Home History of present illness: Mariaa Lockhart is a 78-year-old obese woman with hypertension, diabetes, diastolic heart failure, atrial fibrillation with a prior ablation procedure and currently on warfarin, chronic hypoxic respiratory failure on supplemental oxygen, obstructive sleep apnea on CPAP and stage V COPD who underwent fistula placement 5 days ago on her left antecubital fossa in preparation for dialysis. He presents to the emergency room today on referral by her PCP with generalized constitutional complaints. He says she has been feeling generally weak causing ambulatory difficulty due to the fatigue. She also complains of increasing shortness of breath more so than usual but denies associated chest pain, cough and fever. She also denies abdominal pain, nausea, vomiting and diarrhea. She feels as though she has swollen up more in her legs but otherwise has no other complaints. In the emergency room she was seen to be clinically and hemodynamically stable. EKG and telemetry is reviewed by me reveals a junctional rhythm with a heart rate in the high 50s to low 60s. Lab work done revealed a troponin of 0.21, BNP 486, normal lactate, creatinine stable at 3.4, INR 1.6 and WBC 13.2. Given the troponin elevation that was noted in the ER, she was started on heparin drip ACS protocol. The time of my assessment she was lying comfortably in bed eating a large sandwich saying that her chief complaint coming in today was progressive fatigue and dyspnea over the last 1-2 weeks. Vitals: Reviewed General: Obese white woman lying in bed in no acute distress. Skin: Warm, pale and dry. HEENT: Moist mucous membranes. Mild conjunctivae pallor. Neck: Short and thick, no lymphadenopathy, unable to appreciate JVD. Chest: Reduced thoracic expansion. Crackles auscultated in both lower lung roberts. Heart: Normal S1 & S2; rhythmic. Apical systolic murmur appreciated. Abdomen: Slightly distended, soft and non-tender to palpation. No peritoneal reaction. Extremities: No clubbing, cyanosis. 1+ pitting edema of lower extremities. Neurological: Awake, alert and oriented to person, place and time. No focal deficits. Psych: Affect appropriate. Assessment/Plan 1. Shortness of breath: Suspect the patient has a component of fluid overload causing her symptoms which stems from both her underlying diastolic heart failure and chronic kidney disease. She is crackly on lung auscultation and signs of peripheral edema. She eats out a lot and likely does not watch her sodium intake. Will give a dose of furosemide 80mg IVP now and continue supplemental oxygen. Her regular home doses can be continued tomorrow in conjunction with the fluid restriction diet. Radiology and clinical symptoms are not suggestive of a pneumonic consolidation and therefore will not provide antibiotics at this moment. 2. Elevated troponin: Multifactorial in the setting of chronic kidney disease and underlying heart failure. No clinical or electrocardiographic signs of ACS. We will stop the ACS protocol drip started in the ER while we monitor her on telemetry would continue trending of cardiac enzymes. Cardiology was consulted for further evaluation. 3. Atrial fibrillation: Subtherapeutic INR noted. Heparin drip will be changed to standard dose while warfarin was continued until therapeutic levels. 4. Diabetes: We will place on low dose insulin sliding scale. 5. OSEAS: CPAP at nighttime. 6. Stage V CKD: Stable creatinine values. AV access recently placed and he had to reach maturity. Nephrology to follow. Past Med Surg Social Fam HX - Past Medical History Medical history: atrial fibrillation, diabetes, GERD, hyperlipidemia, hypertension, renal disease, other Additional medical history: cdiff, sepsis, uti, kidney stones Psychiatric history: anxiety - Past Surgical History Surgical History: angioplasty/stent, , orthopedic, other, other Additional surgical history: shoulder surgery 3 times - Social History Smoking Status: Former smoker Smokeless Tobacco Status: No Alcohol use: none Drug use: none - Family History Brother Living Status: Hx Family Cardiac Disorders: Yes ([place]) Mother Living Status: Hx Family Cardiac Disorders: Yes Internal Medicine - H&P: Meds RX: Insulin Glargine,Hum.rec.anlog [Lantus Solostar] 35 units SQ HS 09/04/15 [History] RX: Paricalcitol [Zemplar] 1 mcg PO MOWEFR@0900 09/04/15 [History] RX: Potassium Chloride 20 meq PO DAILY 09/04/15 [History] RX: Sertraline [Zoloft] 50 mg PO DAILY 09/04/15 [History] RX: Warfarin [Coumadin] 2.5 mg PO SUTUWETHSA@1800 09/04/15 [History] RX: Atorvastatin [Lipitor] 40 mg PO HS 11/28/17 [History] RX: Iron Polysaccharide Complex [Pro Fe] 180 mg PO DAILY@0800 11/28/17 [History] RX: LORazepam [Ativan] 0.5 mg PO BID PRN 11/28/17 [History] RX: Warfarin [Coumadin] 5 mg PO MOFR@1800 11/28/17 [History] RX: metOLazone [Zaroxolyn] 2.5 mg PO DAILY 11/28/17 [History] Sulfamethoxazole/Trimeth DS [Bactrim DS] 1 each PO BID #20 tablet 11/03/18 [Rx] RX: Acetaminophen/Diphenhydramine [Acetaminophen Pm Caplet] 1 each PO HS PRN 11/09/18 [History] RX: Amiodarone [Cordarone] 200 mg PO BID 11/09/18 [History] RX: Furosemide [Lasix] 40 mg PO 1700 11/09/18 [History] RX: Furosemide [Lasix] 60 mg PO 0800 11/09/18 [History] RX: Multivit-Minerals/Folic Acid [Adult One Daily Multivit Tab] 0.4 mg PO DAILY 11/09/18 [History] RX: Mupirocin [Bactroban Oint] 1 appl TP BID 11/09/18 [History] RX: Spironolactone [Aldactone] 25 mg PO DAILY 11/09/18 [History] Allergy/AdvReac Type Severity Reaction Status Date / Time epinephrine Allergy See Verified 11/28/17 09:46 Comments prednisone Allergy Itching Verified 11/28/17 09:46 Amoxicillin [From Augmentin] AdvReac Nausea Verified 11/28/17 09:46 clavulanic acid AdvReac Nausea Verified 11/28/17 09:46 [From Augmentin] All Systems PM: A 10-system review of systems was performed and is negative for pertinent findings except as documented above in the HPI. - Constitutional Vitals: Temp Pulse Resp BP Pulse Ox 98.7 F 61 24 152/70 90 05/29/19 16:14 05/29/19 18:14 05/29/19 18:14 05/29/19 18:14 05/29/19 18:14 Exam: . Internal Med - H&P Results - Labs CBC & Chem 7: 05/29/19 18:39 05/29/19 16:50 Labs: Short CBC 05/29/19 05/29/19 Range/Units 16:50 18:39 WBC 14.6 H 13.2 H (4.3-11.1) K/mcL Hgb 11.2 L 10.8 L (11.5-15.4) g/dL Hct 35.4 34.1 L (35.3-44.9) % Plt Count 297 275 (140-400) K/mcL Neutrophils # 12.3 H (1.6-8.9) K/mcL BMP 05/29/19 16:50 Sodium 136 Potassium 4.0 Chloride 97 L Carbon Dioxide 25 BUN 84 H Creatinine 3.41 H Glucose 83 Calcium 10.0 Cardiac Enzymes 05/29/19 Range/Units 16:50 Troponin I 0.21 H* (< 0.04) ng/mL - Impressions ITS Impressions Chest X-Ray 05/29/19 17:11 IMPRESSION: Findings suggest congestive heart failure D/ / Doe Rush MD / Doe Rush MD Interpreting Provider: Doe Rush MD - Time Spent With Patient Total time spent is greater than 50% in coordination of care (as documented) at patient's floor/unit and/or counseling patient:
[2019-05-29] MEDS ORDERED: Insulin DETEMIR 100 UNIT/ML X5UNITS SQ SCH (21:00)
[2019-05-29] MEDS ORDERED: Insulin LISPRO 300 UNITS/3 ML VIAL SQ SCH (21:00)
[2019-05-29] MEDS: *HR* Amiodarone 200 MG TABLET PO SCH (21:09)
[2019-05-29] MEDS: Dextrose Gel 15 GM/37.5 ML TUBE PO PRN (21:18)
[2019-05-29] MEDS: Heparin 25,000 UNIT/250 ML D5W 25,000 UNIT/250 ML IV.SOLN IVC SCH (21:30)
[2019-05-29] MEDS ORDERED: *HR* Warfarin 2.5 MG TABLET PO ONE (21:30)
[2019-05-29] MEDS: *HR* LORazepam 0.5 MG TABLET PO PRN (21:36)
[2019-05-30] MEDS: Dextrose Gel 15 GM/37.5 ML TUBE PO PRN (00:28)
[2019-05-30] MEDS ORDERED: D5% in Lactated Ringers 1,000 ML IVC SCH (04:15)
[2019-05-30] MEDS: *HR* Dextrose 50 % in Water (Syg) 50 ML SYRINGE IVP PRN ×4 (04:21→11:29)
[2019-05-30 04:26] LABS: Heparin anti-factor XA UFH 0.67 IU/mL (0.30-0.70)
[2019-05-30 04:27] LABS: INR 1.8; Prothrombin Time 19.9 Seconds (9.4-12.1)
[2019-05-30] MEDS ORDERED: Insulin LISPRO 300 UNITS/3 ML VIAL SQ SCH (07:30)
[2019-05-30] MEDS ORDERED: Acetaminophen 325 MG TABLET PO PRN (07:44)
[2019-05-30] MEDS ORDERED: D5% in Water 1,000 ML IVC PRN (07:45)
[2019-05-30 08:02] LABS: Hematocrit 33.2 % (35.3-44.9); Hemoglobin 10.8 g/dL (11.5-15.4); Mean Corpuscular HGB Conc 32.5 g/dL (31.6-35.5); Mean Corpuscular Hemoglobin 30.5 pg (28.0-33.3); Mean Corpuscular Volume 93.8 fL (83.0-100.0); Mean Platelet Volume 11.5 fL (9.4-12.4); Platelet Count 257 K/mcL (140-400); Red Blood Count 3.54 M/mcL (3.82-4.97); Red Cell Distribution Width 14.2 % (11.5-14.5); White Blood Count 9.7 K/mcL (4.3-11.1)
[2019-05-30] MEDS: Iron Polysaccharide Complex 150 MG CAPSULE PO SCH (08:17)
[2019-05-30] MEDS: metOLazone 2.5 MG TABLET PO SCH (08:17)
[2019-05-30] MEDS: Furosemide 40 MG TABLET PO SCH (08:17)
[2019-05-30] MEDS: Spironolactone 25 MG TABLET PO SCH (08:17)
[2019-05-30] MEDS: Multivit/Ca/Min/Fe/FA 1 TAB TABLET PO SCH (08:17)
[2019-05-30] MEDS: *HR* Amiodarone 200 MG TABLET PO SCH ×2 (08:17→19:59)
[2019-05-30 08:27] LABS: Calcium 9.7 mg/dL (8.6-10.3); Potassium 3.7 mEq/L (3.5-5.1)
[2019-05-30] MEDS ORDERED: metOLazone 2.5 MG TABLET PO SCH (09:00)
--- NOTE | 2019-05-30 10:27 | Nephrology Consult Note ---
<Vivi Jackson - Last Filed: 05/30/19 12:05> Date of Encounter: 05/30/19 Time of Encounter: 10:24 Assessment and Plan (1) CKD (chronic kidney disease), stage V Status: Chronic Patient has a history of chronic kidney disease, likely secondary to hypertension and diabetes Follows with Dr. Andino AV fistula placed 05/24/19 in preparation for dialysis Renal function at baseline Status post 80 mg IV Lasix Plan Strict I's and O's Recommend 1.5 L fluid restriction Recommend low-sodium renal diet No indication for renal replacement therapy at this time but we will continue to reassess daily Avoid nephrotoxic agents and renally dose medications. (2) Pulmonary edema Status: Acute Dyspnea mildly improved today but not at baseline Secondary to fluid overload from CHF as well as CKD stage 5 See above for management Qualifiers: Chronicity: acute Qualified Code(s): J81.0 - Acute pulmonary edema History of Present Illness - Reason for Consult Consult date: 05/30/19 end stage renal disease - Chief Complaint Shortness of breath - History of Present Illness Mariaa Lockhart is a 78-year-old female presented with shortness of breath. She has past medical history of diabetes mellitus, hypertension, atrial fibrillation status post ablation, diastolic CHF, OSEAS on CPAP and oxygen at night, and CKD now stage V as well as COPD. She underwent AV fistula placement to her left antecubital fossa on 05/24/19. She follows with [facility], Dr. Andino. She states that since her fistula was placed, she was feeling a bit weak and fatigued and she stated that she had to get up and use the bathroom several times while taking her diuretics. She then decreased the amount of Lasix she was taking at home so that she did not have to ambulate to the bathroom as often. She states that she is on a low-sodium diet however she does admit to eating lots of processed foods and fast foods. She states she does not have a fluid restriction. She has had worsening shortness of breath since having her fistula placed and began requiring oxygen supplementation during the day instead of just at night and went to see her PCP yesterday who advised her to present to the emergency department. In the ED a chest x-ray was obtained which revealed cardiomegaly, pulmonary vascular congestion, pulmonary edema and no focal consolidation suggests dating and CHF and fluid overload. Her troponin was elevated at 0.21, BNP 486, creatinine at her baseline at 3.31, GFR of 13, and BUN 84. She was given 80 mg Lasix IV and admitted. Today she states that her breathing has mildly improved. She does state that she becomes short of breath when she sits up and ambulates to the bathroom which is worse than her baseline. She states that she tries to be compliant with her low-sodium diet. She admits to chills, shortness breath, constipation and int ermittent dysuria. She states that she responds well to Lasix. She admits to bruising around her new fistula site. Past Med Surg Social Fam HX - Past Medical History Medical history: atrial fibrillation, diabetes, GERD, hyperlipidemia, hypertension, renal disease, other Additional medical history: cdiff, sepsis, uti, kidney stones Psychiatric history: anxiety - Past Surgical History Surgical History: angioplasty/stent, , orthopedic, other, other Additional surgical history: right shoulder surgery 3 times - Social History Smoking Status: Former smoker Smokeless Tobacco Status: No Alcohol use: none Drug use: none - Family History Brother Living Status: Hx Family Cardiac Disorders: Yes ([place]) Mother Living Status: Hx Family Cardiac Disorders: Yes Medications and Allergies Insulin Glargine,Hum.rec.anlog [Lantus Solostar] 25 units SQ HS 09/04/15 [History] Paricalcitol [Zemplar] 1 mcg PO MOWEFR@0900 09/04/15 [History] Potassium Chloride 20 meq PO 0800 09/04/15 [History] Sertraline [Zoloft] 50 mg PO HS 09/04/15 [History] Atorvastatin [Lipitor] 40 mg PO HS 11/28/17 [History] LORazepam [Ativan] 0.5 mg PO HS PRN 11/28/17 [History] metOLazone [Zaroxolyn] 2.5 mg PO QAM 11/28/17 [History] Acetaminophen/Diphenhydramine [Acetaminophen Pm Caplet] 1 each PO HS PRN 11/09/18 [History] Amiodarone [Cordarone] 200 mg PO QAM 11/09/18 [History] Furosemide [Lasix] 40 mg PO 0800,1700 11/09/18 [History] Multivit-Minerals/Folic Acid [Adult One Daily Multivit Tab] 0.4 mg PO QAM 11/09/18 [History] Spironolactone [Aldactone] 25 mg PO QAM 11/09/18 [History] Amlodipine Besylate 10 mg PO QAM 05/30/19 [History] Carvedilol [Coreg] 6.25 mg PO BID 05/30/19 [History] Glimepiride [Amaryl] 1 mg PO QAM 05/30/19 [History] Levothyroxine [Synthroid] 25 mcg PO QAM 05/30/19 [History] Nystatin Cream [Mycostatin Cream] 1 appl TP BID PRN 05/30/19 [History] Potassium Chloride [K-Tab ER] 40 meq PO 1700 05/30/19 [History] Propylene Glycol/Peg 400 [Systane 0.3-0.4% Eye Drops] 1 drop BOTH EYES DAILY PRN 05/30/19 [History] Warfarin [Coumadin] 2.5 mg PO DAILY 05/30/19 [History] Allergy/AdvReac Type Severity Reaction Status Date / Time epinephrine Allergy See Verified 11/28/17 09:46 Comments prednisone Allergy Itching Verified 11/28/17 09:46 Amoxicillin [From Augmentin] AdvReac Nausea Verified 11/28/17 09:46 clavulanic acid AdvReac Nausea Verified 11/28/17 09:46 [From Augmentin] Review of Systems Constitutional: chills, no fever(s), no frequent falls Nose, mouth and throat: dizziness Cardiovascular: dyspnea, dyspnea on exertion, edema, lightheadedness, orthopnea, pedal edema, no chest pain, no palpitations, no syncope Respiratory: dyspnea, no cough, no pain on inspiration Gastrointestinal: constipation, no abdominal pain, no diarrhea, no hematochezia, no melena Genitourinary Female: dysuria (intermittently) Musculoskeletal: no arthralgias, no myalgias Integumentary: no rash Neurological: dizziness, paresthesias Psychiatric: no anxiety, no depression Endocrine: fatigue Hematologic/Lymphatic: easy bleeding, easy bruising Allergic/Immunologic: no uticaria Exam - Vital Signs Vital signs: Initial Vital Signs Temp Pulse Resp BP Pulse Ox 98.7 F 90 20 166/63 100 05/29/19 16:14 05/29/19 16:14 05/29/19 16:14 05/29/19 16:14 05/29/19 16:14 Vital Signs - Last 8 Hours Temp Pulse Resp BP Pulse Ox 05/30/19 07:11 98.1 F 63 18 151/70 95 05/30/19 04:08 97.7 F 60 18 156/68 90 Intake and Output 05/29/19 05/30/19 05/30/19 23:59 07:59 15:59 Intake Total 0 / 0 80 / 80 0 / 80 Output Total 1200 / 1200 Balance 0 / 0 -1120 / -1120 0 / -1120 Intake: IV Fluids 80 / 80 Heparin 25,000 UNIT/250 ML D5W 80 / 80 25,000 unit In 250 ml @ 14 UNIT /KG/HR 14.034 mls/hr IVC . [id number] JUAN Rx#:[id number] Oral 0 / 0 0 / 0 Output: Urine 1200 / 1200 Other: Meal NPO Percent of Meal Consumed 0% # Voids 1 Weight 106.5 kg Blood Glucose* 67 57 76 - General Appearance Exam: Gen: Vitals noted. No acute distress. AAOx3, obese, pleasant HEENT: PERRL/EOMI, oropharynx clear, MMM. Normocephalic, atraumatic Cardiac: RRR, systolic murmur, +S1/S2, radial pulses 3+ and symmetrical, posterior tibial pulses 2+ and symmetrical Pulmonary: Rales at lung bases bilaterally, no wheezes or rhonchi, equal chest expansion Abdomen: soft, nontender, BS noted, no guarding, no rebound. MSK: ROM intact, no joint swelling noted Extremities: 1+ edema to knees, no calf tenderness, no cyanosis or clubbing. AV fistula in left antecubital fossa with significant ecchymosis around it Neuro: A&Ox3, moves all extremities, no focal deficits Psych: Appropriate mood and behavior Results - Lab Results 05/30/19 07:50 05/30/19 07:50 Most recent lab results 05/30/19 07:50 Calcium 9.7 Consult Discharge Plan - Plan Referrals: Ursula Carlos CNP [Primary Care Provider] - 06/05/19 11:00 am (Please follow up as schedule...) Abdulaziz Mast MD [Non-Partnered Physician] - (Called and left message with patient name and birthdate) <Stuart Elder - Last Filed: 06/11/19 02:45> Date of Encounter: 05/30/19 Exam - Vital Signs Vital signs: Initial Vital Signs Temp Pulse Resp BP Pulse Ox 98.7 F 90 20 166/63 100 05/29/19 16:14 05/29/19 16:14 05/29/19 16:14 05/29/19 16:14 05/29/19 16:14 Results - Lab Results 05/31/19 04:41 05/31/19 04:41 - Attending Attestation I examined this patient and my medical decision-making was reviewed with the Resident Physician/TRANSLATOR. I agree with the documented findings, disposition and treatment plan as described except to the extent set forth below. In brief; 78 y o female with PMH of DM, HTN and stage 5 CKD admitted with SOB after recent AVF placement 05/24/19. Renal consulted for elevated SCr. On exam: Gen: chronic ill appearing NAD, lungs with decreased BS bases bilat, Heart S1S2, Abd soft obese NTND, Ext +LE edema bilat +AVF with thrill and bruitand Neuro AAOx3. Labs noted. SCr at baseline. Continue current diuretic regimen. Continue to avoid nephrotoxins if possible. No acute indication for [employer] at this time.
--- NOTE | 2019-05-30 11:34 | Cardiology Consult Note ---
<Brian Vann - Last Filed: 05/30/19 11:29> Date of Encounter: 05/30/19 Time of Encounter: 09:30 Assessment and Plan (1) Diastolic CHF Current Visit: No Status: Chronic Acute on chronic diastolic CHF. Likely secondary to recent surgery with IV fluids. Agree with IV diuretic with nephrology assistance. TTE 11/2018- EF 60-65%. Mild diastolic dysfunction. No significant valvular disease. CXR pulmonary vascular congestion. Pulmonary edema. BNP 486. Symptoms multifactoral with CKD, COPD, and OSEAS. Strict I&O and daily weights. F/u with her sports information director, Dr. Abdulaziz Mast, in 1-2 weeks. Qualifiers: Heart failure chronicity: acute on chronic Qualified Code(s): I50.33 - Acute on chronic diastolic (congestive) heart failure (2) Atrial fibrillation Current Visit: No Status: Chronic Currently SR. On coumadin but held fro recent surgery. INR sub therapeutic. Recommend pharmacy to dose. On heparin gtt. Qualifiers: Atrial fibrillation type: chronic Qualified Code(s): I48.2 - Chronic atrial fibrillation (3) Elevated troponin Current Visit: No Status: Acute Troponin elevation, 0.21, 0.30, 0.27. Likely secondary to pulmonary edema and CKD, demand ischemia. Denies chest pain. No history of CAD. Reports normal LHC in the past. Agree with diuresis. Heparin gtt for 24 hours. No strong indication for LHC at this time. Discussion w patient/family: The assessment and plan as outlined above was discussed with the patient and/or family members who expressed understanding and agreement. All questions were answered. Thank you for involving us in the care of your patient. Please call with any questions. History of Present Illness Consult date: 05/30/19 Requesting physician: Luigi Davis Consult reason: CHF Chief complaint: Multiple genralized complaints and SOB History of present illness: Ms. Lockhart is a 78 year old female with past medical history of HFpEF, atrial fibrilation s/p ablation, COPD, chronic hypoxic respiratory failure on home O2, OSEAS on c-pap, stage IV CKD, and obesity who presents with multiple generalized complaints. C/o increasing SOB fro baseline, weakness, fatigue, fluctuating blood sugars, and just not feeling right. States symptoms started after she had an AV fistula placed last week. She was discharged last tuesday. She is currently not on dialysis but is planning for possible dialysis in the future. Past Med Surg Social Fam HX - Past Medical History Medical history: atrial fibrillation, diabetes, GERD, hyperlipidemia, hypertension, renal disease, other Additional medical history: cdiff, sepsis, uti, kidney stones Psychiatric history: anxiety - Past Surgical History Surgical History: angioplasty/stent, , orthopedic, other, other Additional surgical history: right shoulder surgery 3 times - Social History Smoking Status: Former smoker Smokeless Tobacco Status: No Alcohol use: none Drug use: none - Family History Brother Living Status: Hx Family Cardiac Disorders: Yes (ME) Mother Living Status: Hx Family Cardiac Disorders: Yes Medications and Allergies Insulin Glargine,Hum.rec.anlog [Lantus Solostar] 35 units SQ HS 09/04/15 [History] Paricalcitol [Zemplar] 1 mcg PO MOWEFR@0900 09/04/15 [History] Potassium Chloride 20 meq PO DAILY 09/04/15 [History] Sertraline [Zoloft] 50 mg PO DAILY 09/04/15 [History] Warfarin [Coumadin] 2.5 mg PO SUTUWETHSA@1800 09/04/15 [History] Atorvastatin [Lipitor] 40 mg PO HS 11/28/17 [History] Iron Polysaccharide Complex [Pro Fe] 180 mg PO DAILY@0800 11/28/17 [History] LORazepam [Ativan] 0.5 mg PO BID PRN 11/28/17 [History] Warfarin [Coumadin] 5 mg PO MOFR@1800 11/28/17 [History] metOLazone [Zaroxolyn] 2.5 mg PO DAILY 11/28/17 [History] Sulfamethoxazole/Trimeth DS [Bactrim DS] 1 each PO BID #20 tablet 11/03/18 [Rx] Acetaminophen/Diphenhydramine [Acetaminophen Pm Caplet] 1 each PO HS PRN 11/09/18 [History] Amiodarone [Cordarone] 200 mg PO BID 11/09/18 [History] Furosemide [Lasix] 40 mg PO 1700 11/09/18 [History] Furosemide [Lasix] 60 mg PO 0800 11/09/18 [History] Multivit-Minerals/Folic Acid [Adult One Daily Multivit Tab] 0.4 mg PO DAILY 11/09/18 [History] Mupirocin [Bactroban Oint] 1 appl TP BID 11/09/18 [History] Spironolactone [Aldactone] 25 mg PO DAILY 11/09/18 [History] Allergy/AdvReac Type Severity Reaction Status Date / Time epinephrine Allergy See Verified 11/28/17 09:46 Comments prednisone Allergy Itching Verified 11/28/17 09:46 Amoxicillin [From Augmentin] AdvReac Nausea Verified 11/28/17 09:46 clavulanic acid AdvReac Nausea Verified 11/28/17 09:46 [From Augmentin] All Systems Review: The remainder of the systems were reviewed and are negative Physical Examination Vital Signs Temp Pulse Resp BP Pulse Ox 05/30/19 11:28 97.6 F 56 18 158/68 93 05/30/19 07:11 98.1 F 63 18 151/70 95 05/30/19 04:08 97.7 F 60 18 156/68 90 05/29/19 23:39 97.8 F 55 17 152/72 89 05/29/19 20:53 98.2 F 59 18 155/70 05/29/19 18:14 61 24 152/70 90 05/29/19 16:34 92 05/29/19 16:14 98.7 F 90 20 166/63 100 Intake and Output 05/29/19 05/30/19 05/30/19 23:59 07:59 15:59 Intake Total 0 / 0 80 / 180 100 / 180 Output Total 1200 / 1800 600 / 1800 Balance 0 / 0 -1120 / -1620 -500 / -1620 Intake: IV Fluids 80 / 180 100 / 180 Heparin 25,000 UNIT/250 ML D5W 80 / 180 100 / 180 25,000 unit In 250 ml @ 14 UNIT /KG/HR 14.034 mls/hr IVC . [id number] [facility] Rx#:[id number] Oral 0 / 0 0 / 0 Output: Urine 1200 / 1800 600 / 1800 Other: Meal NPO Percent of Meal Consumed 0% # Voids 1 1 Weight 106.5 kg Blood Glucose* 67 57 41 General: Conversant, No Apparent Distress HEENT: Atraumatic, Normocephaly, Mucus Membranes Moist Neck: No JVD, Normal carotid pulses Cardiac: Reg Rate and Rhythm, Normal S1 and S2, No Murmur Lungs: Normal Breath Sounds, No Wheeze, Rales, Rhonchi Neuro: Alert and responsive, No focal deficits noted Abdomen: Soft, Non-Tender Skin: No rashes noted on visualized skin Musculoskeletal: No Chest Wall Tenderness Extremities: No Clubbing, No Cyanosis, Normal Pulses, Other (Trace ankle edema) Results 05/30/19 07:50 05/30/19 07:50 Lab Results 05/29/19 05/29/19 05/29/19 16:50 16:50 16:50 WBC 14.6 H Hgb 11.2 L Hct 35.4 Plt Count 297 INR Sodium 136 Potassium 4.0 Chloride 97 L Carbon Dioxide 25 BUN 84 H Creatinine 3.41 H Glucose 83 Calcium 10.0 Troponin I 0.21 H* B-Natriuretic Peptide 486 H 05/29/19 05/29/19 05/29/19 18:39 18:39 22:27 WBC 13.2 H Hgb 10.8 L Hct 34.1 L Plt Count 275 INR 1.6 Sodium Potassium Chloride Carbon Dioxide BUN Creatinine Glucose Calcium Troponin I 0.30 H* B-Natriuretic Peptide 05/30/19 05/30/19 05/30/19 03:49 03:49 07:50 WBC 9.7 Hgb 10.8 L Hct 33.2 L Plt Count 257 INR 1.8 Sodium Potassium Chloride Carbon Dioxide BUN Creatinine Glucose Calcium Troponin I 0.27 H* B-Natriuretic Peptide 05/30/19 07:50 WBC Hgb Hct Plt Count INR Sodium 137 Potassium 3.7 Chloride 99 Carbon Dioxide 30 H BUN 82 H Creatinine 3.31 H Glucose 33 L* Calcium 9.7 Troponin I B-Natriuretic Peptide - Imaging and Cardiology Echo: report reviewed - EKG Interpretation EKG results cardiology: personally reviewed Consult Discharge Plan - Plan Referrals: Ursula Carlos, AMIRA [Primary Care Provider] - < A - Last Filed: 05/30/19 21:08> Date of Encounter: 05/30/19 - Attending Attestation I have personally performed a face to face evaluation on this patient. I have reviewed and agree with the documented findings and care plan as documented by the HEALTHCARE TRANSLATOR. History and Exam by me shows: Patient with CKD stage IV admitted for acute diastolic CHF exacerbation NYHA class III. I agree with nephrology consult to help manage diuresis Thanks for the consult, please call with questions. Dheeraj Betancur MD [facility] Assessment and Plan Discussion w patient/family: The assessment and plan as outlined above was discussed with the patient and/or family members who expressed understanding and agreement. All questions were answered. Thank you for involving us in the care of your patient. Please call with any questions. History of Present Illness History of present illness: Ms. Lockhart is a 78 year old female All Systems Review: The remainder of the systems were reviewed and are negative Physical Examination Vital Signs, Last 4 Hours Temp Pulse Resp BP Pulse Ox 05/30/19 20:12 92 05/30/19 19:46 99.0 F 53 17 144/71 91 Results 05/30/19 07:50 05/30/19 07:50 Lab Results 05/29/19 05/30/19 05/30/19 22:27 03:49 03:49 WBC Hgb Hct Plt Count INR 1.8 Sodium Potassium Chloride Carbon Dioxide BUN Creatinine Glucose Calcium Troponin I 0.30 H* 0.27 H* 05/30/19 05/30/19 07:50 07:50 WBC 9.7 Hgb 10.8 L Hct 33.2 L Plt Count 257 INR Sodium 137 Potassium 3.7 Chloride 99 Carbon Dioxide 30 H BUN 82 H Creatinine 3.31 H Glucose 33 L* Calcium 9.7 Troponin I
--- NOTE | 2019-05-30 13:13 | Internal Med Progress Note ---
Hospitalist Progress Note - Encounter Date of Encounter: 05/30/19 Time of Encounter: 13:11 - Subjective Interval History: Patient seen and examined. No acute events overnight. Patient still requiring 6L NC with baseline of 4L NC. FSBS dropped to 33 this am. Patient has been NPO prior to cardiac evaluation. - Exam Vitals: Temp Pulse Resp BP Pulse Ox 97.6 F 56 18 158/68 93 05/30/19 11:28 05/30/19 11:28 05/30/19 11:28 05/30/19 11:28 05/30/19 11:28 Exam: GENERAL APPEARANCE: Well developed, well nourished, alert and cooperative, and appears to be in no acute distress. HEENT: Normocephalic/atraumatic, PERRLA. NECK: Supple, nontender without lymphadenopathy. CARDIOVASCULAR: Normal S1, S2; regular rate and rhythm; no murmurs. RESPIRATORY: crackles present at bilateral bases; mild conversational dyspnea ABDOMEN: Soft, nondistended, nontender; bowel sounds present. MUSKULOSKELETAL: No limitations in range of motion. EXTREMITIES: 1+ pitting edema in b/l LE NEUROLOGICAL: No focal neurological deficits. SKIN: Skin normal color, texture and turgor with no lesions or eruptions. PSYCHIATRIC: Judgment and reasoning; no hallucinations; normal affect. - Assessment and Plan (1) Acute diastolic (congestive) heart failure Current Visit: Yes Status: Acute Assessment and Plan: Patient presenting with symptoms of fluid overload along with poor sodium intake Feeling better after dose of IV lasix Home O2 requirement 4L NC but still requiring higher amount Plan: Continue diuresis Titrate NC O2 back to baseline as tolerated Low sodium renal diet and fluid restriction Monitor I&Os Cardiology consulted Nephrology consulted (2) Elevated troponin Current Visit: Yes Status: Acute Assessment and Plan: Troponin elevated to 0.3 and trended down to 0.27 Cardiology consulted and likely secondary to pulmonary edema and CKD; demand ischemia Plan: Treat acute CHF (3) Chronic kidney disease, stage IV (severe) Current Visit: Yes Status: Chronic Assessment and Plan: Patient appears to be at baseline kidney function Plan: Nephrology is consulted; no need for FORKLIFT PICKER at this time, continue diuresis (4) Atrial fibrillation Current Visit: Yes Status: Chronic Assessment and Plan: currently sinus rhythm, INR subtherapeutic on admission Plan: Heparin drip while coumadin being adjusted for therapeutic INR (5) Diabetes Current Visit: Yes Status: Chronic Assessment and Plan: FSBS dropped low this am; likely 2/2 NPO Plan: Resume diet and monitor FSBS Sliding scale insulin - Time Spent with Patient Total time spent is greater than 50% in coordination of care (as documented) at patient's floor/unit and/or counseling patient: 35 minutes Plan of Care Discussed with: patient Internal Medicine: Result - Labs CBC & Chem 7: 05/30/19 07:50 05/30/19 07:50 Labs: Short CBC 05/29/19 05/29/19 05/30/19 Range/Units 16:50 18:39 07:50 WBC 14.6 H 13.2 H 9.7 (4.3-11.1) K/mcL Hgb 11.2 L 10.8 L 10.8 L (11.5-15.4) g/dL Hct 35.4 34.1 L 33.2 L (35.3-44.9) % Plt Count 297 275 257 (140-400) K/mcL Neutrophils # 12.3 H (1.6-8.9) K/mcL BMP 05/29/19 05/30/19 16:50 07:50 Sodium 136 137 Potassium 4.0 3.7 Chloride 97 L 99 Carbon Dioxide 25 30 H BUN 84 H 82 H Creatinine 3.41 H 3.31 H Glucose 83 33 L* Calcium 10.0 9.7 Cardiac Enzymes 05/29/19 05/29/19 05/30/19 Range/Units 16:50 22:27 03:49 Troponin I 0.21 H* 0.30 H* 0.27 H* (< 0.04) ng/mL - ABG Interpretation ABG results: PT/INR, D-dimer PT 19.9 Seconds (9.4-12.1) H 05/30/19 03:49 - Impressions Impressions Chest X-Ray 05/29/19 17:11 IMPRESSION: Findings suggest congestive heart failure D/ / Doe Rush MD / Doe Rush MD Interpreting Provider: Doe Rush MD Consult Discharge Plan - Plan Referrals: Ursula Carlos, DULSER [Primary Care Provider] - (4) Atrial fibrillation Qualifiers: Atrial fibrillation type: chronic Qualified Code(s): I48.2 - Chronic atrial fibrillation (5) Diabetes Qualifiers: Diabetes mellitus type: type 2 Diabetes mellitus senior living insulin use: with senior living use Diabetes mellitus complication status: with kidney complications Diabetes mellitus complication detail: with chronic kidney disease Chronic kidney disease stage: stage 4 (severe) Qualified Code(s): E11.22 - Type 2 diabetes mellitus with diabetic chronic kidney disease; N18.4 - Chronic kidney disease, stage 4 (severe); Z79.4 - jail (current) use of insulin
[2019-05-30] MEDS: Heparin 25,000 UNIT/250 ML D5W 25,000 UNIT/250 ML IV.SOLN IVC SCH (14:56)
[2019-05-30] MEDS ORDERED: Furosemide 40 MG TABLET PO SCH (17:00)
[2019-05-30] MEDS ORDERED: Warfarin perPT PO PRN (18:00)
[2019-05-30] MEDS ORDERED: *HR* Warfarin 5 MG TABLET PO ONE (18:00)
[2019-05-30] MEDS: *HR* LORazepam 0.5 MG TABLET PO PRN (21:14)
[2019-05-31 05:13] LABS: Hematocrit 31.8 % (35.3-44.9); Hemoglobin 10.3 g/dL (11.5-15.4); Mean Corpuscular HGB Conc 32.4 g/dL (31.6-35.5); Mean Corpuscular Hemoglobin 30.5 pg (28.0-33.3); Mean Corpuscular Volume 94.1 fL (83.0-100.0); Platelet Count 270 K/mcL (140-400); Red Blood Count 3.38 M/mcL (3.82-4.97); White Blood Count 8.3 K/mcL (4.3-11.1)
[2019-05-31 05:22] LABS: INR 1.9; Prothrombin Time 21.1 Seconds (9.4-12.1)
[2019-05-31 05:31] LABS: Calcium 9.8 mg/dL (8.6-10.3); Potassium 4.1 mEq/L (3.5-5.1)
[2019-05-31 07:37] VITALS: BP 154/73
[2019-05-31] MEDS ORDERED: Insulin LISPRO 300 UNITS/3 ML VIAL SQ SCH ×2 (07:45→21:00)
[2019-05-31] MEDS: metOLazone 2.5 MG TABLET PO SCH (08:34)
[2019-05-31] MEDS: Furosemide 40 MG TABLET PO SCH (08:34)
[2019-05-31] MEDS: *HR* Amiodarone 200 MG TABLET PO SCH (08:34)
[2019-05-31] MEDS: Multivit/Ca/Min/Fe/FA 1 TAB TABLET PO SCH (08:34)
[2019-05-31] MEDS: Spironolactone 25 MG TABLET PO SCH (08:34)
[2019-05-31] MEDS: Iron Polysaccharide Complex 150 MG CAPSULE PO SCH (08:35)
[2019-05-31] MEDS ORDERED: Levothyroxine 25 MCG TABLET PO SCH (09:00)
--- NOTE | 2019-05-31 10:24 | Discharge Summary ---
- NOTES TO OUTPATIENT PROVIDER Notes to Outpatient Provider: repeat INR Orders not resulted at time of discharge: Pending orders 05/29/19 16:52 Culture,Blood [] Stat Date of Encounter: 05/31/19 Time of Encounter: 10:22 - Discharge Diagnosis (1) Acute diastolic (congestive) heart failure Priority: Primary Status: Acute (2) Elevated troponin Priority: Secondary Status: Acute (3) Chronic kidney disease, stage IV (severe) Priority: Secondary Status: Chronic (4) Atrial fibrillation Priority: Secondary Status: Chronic Qualifiers: Atrial fibrillation type: chronic Qualified Code(s): I48.2 - Chronic atrial fibrillation (5) Diabetes Priority: Secondary Status: Chronic Qualifiers: Diabetes mellitus type: type 2 Diabetes mellitus superintendent container terminal insulin use: with halfway use Diabetes mellitus complication status: with kidney complications Diabetes mellitus complication detail: with chronic kidney disease Chronic kidney disease stage: stage 4 (severe) Qualified Code(s): E11.22 - Type 2 diabetes mellitus with diabetic chronic kidney disease; N18.4 - Chronic kidney disease, stage 4 (severe); Z79.4 - termite control servicer (current) use of insulin Hospital course: Ms. Lockhart is a 78 year old female with PMH of HTN, DM, CHF, Afib, Chronic hypoxic respiratory failure on home O2, OSEAS, COPD presenting for generalized weakness and dyspnea and acute hypoxic respiratory failure. Patient was treated for acute CHF. Cardiology on Nephrology was consulted. Patient was diuresed. Patient was noted to have elevated troponin that is was thought to be demand ischemia. Patient's respiratory status improved with diureses and she was weaned to her home O2 levels. On day of discharge, patient still noted some weakness. She did not want to go to rehab facility for rehab even if recommended. Patient was clinically stable on day of discharge. She was sent home with home health for PT evaluation. Of note, patients INR was subtherapeutic during admission. She was stareted on heparin GTT along with home dose of coumadin. On discharge, her INR had come up to 1.8. She will continue her home dose and needs repeat INR checked within 1 week of discharge. - Time Spent with Patient Total time spent providing and/or coordinating discharge services: 40 minutes - Discharge Medications Prescriptions: Continued Sertraline [Zoloft] 50 mg PO HS Insulin Glargine,Hum.rec.anlog [Lantus Solostar] 25 units SQ HS Paricalcitol [Zemplar] 1 mcg PO MOWEFR@0900 Potassium Chloride 20 meq PO 0800 Atorvastatin [Lipitor] 40 mg PO HS LORazepam [Ativan] 0.5 mg PO HS PRN PRN Reason: Anxiety metOLazone [Zaroxolyn] 2.5 mg PO QAM Acetaminophen/Diphenhydramine [Acetaminophen Pm Caplet] 1 each PO HS PRN PRN Reason: Pain Amiodarone [Cordarone] 200 mg PO QAM Multivit-Minerals/Folic Acid [Adult One Daily Multivit Tab] 0.4 mg PO QAM Spironolactone [Aldactone] 25 mg PO QAM Furosemide [Lasix] 40 mg PO 0800,1700 Amlodipine Besylate 10 mg PO QAM Carvedilol [Coreg] 6.25 mg PO BID Glimepiride [Amaryl] 1 mg PO QAM Levothyroxine [Synthroid] 25 mcg PO QAM Nystatin Cream [Mycostatin Cream] 1 appl TP BID PRN PRN Reason: Rash Potassium Chloride [K-Tab ER] 40 meq PO 1700 Propylene Glycol/Peg 400 [Systane 0.3-0.4% Eye Drops] 1 drop BOTH EYES DAILY PRN PRN Reason: Dry Eye(S) Warfarin [Coumadin] 2.5 mg PO DAILY Discontinued Furosemide [Lasix] 20 mg PO 0800 Home Medications: Insulin Glargine,Hum.rec.anlog [Lantus Solostar] 25 units SQ HS 09/04/15 [History] Paricalcitol [Zemplar] 1 mcg PO MOWEFR@0900 09/04/15 [History] Potassium Chloride 20 meq PO 0800 09/04/15 [History] Sertraline [Zoloft] 50 mg PO HS 09/04/15 [History] Atorvastatin [Lipitor] 40 mg PO HS 11/28/17 [History] LORazepam [Ativan] 0.5 mg PO HS PRN 11/28/17 [History] metOLazone [Zaroxolyn] 2.5 mg PO QAM 11/28/17 [History] Acetaminophen/Diphenhydramine [Acetaminophen Pm Caplet] 1 each PO HS PRN 11/09/18 [History] Amiodarone [Cordarone] 200 mg PO QAM 11/09/18 [History] Furosemide [Lasix] 40 mg PO 0800,1700 11/09/18 [History] Multivit-Minerals/Folic Acid [Adult One Daily Multivit Tab] 0.4 mg PO QAM 11/09/18 [History] Spironolactone [Aldactone] 25 mg PO QAM 11/09/18 [History] Amlodipine Besylate 10 mg PO QAM 05/30/19 [History] Carvedilol [Coreg] 6.25 mg PO BID 05/30/19 [History] Glimepiride [Amaryl] 1 mg PO QAM 05/30/19 [History] Levothyroxine [Synthroid] 25 mcg PO QAM 05/30/19 [History] Nystatin Cream [Mycostatin Cream] 1 appl TP BID PRN 05/30/19 [History] Potassium Chloride [K-Tab ER] 40 meq PO 1700 05/30/19 [History] Propylene Glycol/Peg 400 [Systane 0.3-0.4% Eye Drops] 1 drop BOTH EYES DAILY PRN 05/30/19 [History] Warfarin [Coumadin] 2.5 mg PO DAILY 05/30/19 [History] Allergies/Adverse Reactions: Allergy/AdvReac Type Severity Reaction Status Date / Time epinephrine Allergy See Verified 11/28/17 09:46 Comments prednisone Allergy Itching Verified 11/28/17 09:46 Amoxicillin [From Augmentin] AdvReac Nausea Verified 11/28/17 09:46 clavulanic acid AdvReac Nausea Verified 11/28/17 09:46 [From Augmentin] Date of admission: 05/29/19 20:06 Primary care physician: Ursula Carlos CNP Consults: 05/29/19 18:34 Consult to Nephrology [CONS] Stat Consulting Provider: Kidney Domonique/KESHAV/FABBY/KARLA Reason for Consult: ESRD Time Notified: 18:34 Call Completed: Yes 05/29/19 20:12 Consult to Cardiology [CONS] Routine Comment: Consulting Provider: Cardiology Domonique Reason for Consult: CHF/NSTEMI evaluation Call Completed: Yes Discharging clinician: Lobito Whitney Anticipated date of discharge: 05/31/19 - Constitutional Vitals: Temp Pulse Resp BP Pulse Ox 97.8 F 53 18 154/73 93 05/31/19 07:35 05/31/19 07:35 05/31/19 07:35 05/31/19 07:35 05/31/19 07:35 General appearance: Present: A&O X 3, no acute distress, answers questions appropriately Exam: GENERAL APPEARANCE: Well developed, well nourished, alert and cooperative, and appears to be in no acute distress. HEENT: Normocephalic/atraumatic, PERRLA. NECK: Supple, nontender without lymphadenopathy. CARDIOVASCULAR: Normal S1, S2; regular rate and rhythm; no murmurs. RESPIRATORY: b/l air entry present; mild crackles at bases improving; no dyspnea with conversation ABDOMEN: Soft, nondistended, nontender; bowel sounds present. MUSKULOSKELETAL: No limitations in range of motion. EXTREMITIES: 1+ pitting edema in b/l LE NEUROLOGICAL: No focal neurological deficits. SKIN: Skin normal color, texture and turgor with no lesions or eruptions. PSYCHIATRIC: Judgment and reasoning; no hallucinations; normal affect. - Patient Status Disposition: Home Health Service Condition: Fair Functional capacity at discharge: uses cane/walker Overall status at discharge: patient is not back to baseline - Discharge Instructions Follow Up With: Ursula Carlos, RESULTS ENGINEER [Primary Care Provider] - - Diet and Activity Activity: as per physical therapy Diet: advance to your usual diet
--- NOTE | 2019-05-31 10:38 | Physician Discharge Referral ---
Home Health/Hosp Referral Info Transfer to: Home Health Provider in Charge Post Discharge: PCP - Diagnosis (1) Acute diastolic (congestive) heart failure Priority: Primary Status: Acute (2) Elevated troponin Priority: Secondary Status: Acute (3) Chronic kidney disease, stage IV (severe) Priority: Secondary Status: Chronic (4) Atrial fibrillation Priority: Secondary Status: Chronic (5) Diabetes Priority: Secondary Status: Chronic - Respiratory Orders Oxygen / L per min (4L per minute) Smoking Cessation: Smoking cessation has been advised. For more information, call the [place] Tobacco Quit Line at 5-878-OEZD-NOW. - Diet/Nutrition Diet/Nutrition Orders: No Added Salt (BRODERICK), Renal, Cardiac - Activity Activity Orders: Ambulate - Services Needed Following services are medically necessary services: Physical Therapy, Occupational Therapy - Transfer Medications Home Medications: Insulin Glargine,Hum.rec.anlog [Lantus Solostar] 25 units SQ HS 09/04/15 [History] Paricalcitol [Zemplar] 1 mcg PO MOWEFR@0900 09/04/15 [History] Potassium Chloride 20 meq PO 0800 09/04/15 [History] Sertraline [Zoloft] 50 mg PO HS 09/04/15 [History] Atorvastatin [Lipitor] 40 mg PO HS 11/28/17 [History] LORazepam [Ativan] 0.5 mg PO HS PRN 11/28/17 [History] metOLazone [Zaroxolyn] 2.5 mg PO QAM 11/28/17 [History] Acetaminophen/Diphenhydramine [Acetaminophen Pm Caplet] 1 each PO HS PRN 11/09/18 [History] Amiodarone [Cordarone] 200 mg PO QAM 11/09/18 [History] Furosemide [Lasix] 40 mg PO 0800,1700 11/09/18 [History] Multivit-Minerals/Folic Acid [Adult One Daily Multivit Tab] 0.4 mg PO QAM 11/09/18 [History] Spironolactone [Aldactone] 25 mg PO QAM 11/09/18 [History] Amlodipine Besylate 10 mg PO QAM 05/30/19 [History] Carvedilol [Coreg] 6.25 mg PO BID 05/30/19 [History] Glimepiride [Amaryl] 1 mg PO QAM 05/30/19 [History] Levothyroxine [Synthroid] 25 mcg PO QAM 05/30/19 [History] Nystatin Cream [Mycostatin Cream] 1 appl TP BID PRN 05/30/19 [History] Potassium Chloride [K-Tab ER] 40 meq PO 1700 05/30/19 [History] Propylene Glycol/Peg 400 [Systane 0.3-0.4% Eye Drops] 1 drop BOTH EYES DAILY PRN 05/30/19 [History] Warfarin [Coumadin] 2.5 mg PO DAILY 05/30/19 [History] Allergies/Adverse Reactions: Allergy/AdvReac Type Severity Reaction Status Date / Time epinephrine Allergy See Verified 11/28/17 09:46 Comments prednisone Allergy Itching Verified 11/28/17 09:46 Amoxicillin [From Augmentin] AdvReac Nausea Verified 11/28/17 09:46 clavulanic acid AdvReac Nausea Verified 11/28/17 09:46 [From Augmentin] Certification: Further, I certify that my clinical findings support that this patient is homebound (i.e. absences from home require considerable and taxing effort and are for medical reasons or taoism services or infrequently or short duration when for other reasons) because: Homebound Reason: Leaving home requires considerable and taxing effort due to condition Attestation: My signature below is to certify that this patient is under my care and that I, or nurse practitioner, or a physician's assistant unit forester working with me, has a [id number] encounter with this patient.
--- NOTE | 2019-05-31 12:22 | Electrocardiograph Report ---
[address] [id number] Test Date: 2019-05-29 Pat Name: Mariaa Lockhart Department: EXAM10 Room: 2A12 Gender: F Global Sales Executive: : 1940 Requested By: Reza Deshpande Order Number: [id number] Reading MD: Abdulaziz Callaway Measurements Intervals [place] Rate: 65 P: [place]: QRS: 47 QRSD: 88 T: 74 QT: 404 QTc: 420 Interpretive Statements Junctional rhythm Low voltage, precordial leads Electronically Signed On 05-31-2019 12:20:47 EDT by Abdulaziz Callaway
[2019-05-31] MEDS ORDERED: POTASSIUM CHLORIDE 40 MEQ PO SCH (17:00)
[2019-05-31] MEDS ORDERED: *HR* Warfarin 2.5 MG TABLET PO ONE (18:00)
== END 2019-05-31 12:59 | disposition home health service (06) | DRG 291 ==
LOC: EMEROOARM 16:08 → 2ANU 16:08 → SUATTDRO 20:06 → 2ANU 20:21
PROVIDERS: ADMIT Internal Medicine; ATTEND Family Medicine

== ENCOUNTER 2019-09-28 12:10 | Inpatient (IN) ==
[2019-09-28 13:01] LABS: Basophils # 0.1 K/mcL (0.0-0.2); Basophils % 0.7 %; Eosinophils # 0.2 K/mcL (0.0-0.6); Eosinophils % 1.4 %; Hemoglobin 10.4 g/dL (11.5-15.4); Immature Granulocytes % 0.4 % (0-4); Lymphocytes # 0.8 K/mcL (0.6-4.6); Lymphocytes % 7.1 %; Mean Corpuscular HGB Conc 32.5 g/dL (31.6-35.5); Mean Corpuscular Hemoglobin 29.6 pg (28.0-33.3); Mean Corpuscular Volume 91.2 fL (83.0-100.0); Monocytes # 0.8 K/mcL (0.0-1.3); Monocytes % 7.5 %; Neutrophils # 8.8 K/mcL (1.6-8.9); Platelet Count 248 K/mcL (140-400); Red Blood Count 3.51 M/mcL (3.82-4.97); Red Cell Distribution Width 14.3 % (11.5-14.5); Segmented Neutrophils % 82.9 %; White Blood Count 10.6 K/mcL (4.3-11.1)
[2019-09-28] MEDS ORDERED: Furosemide 40 MG/4 ML VIAL IVP STA (13:27)
[2019-09-28 13:31] LABS: Calcium 11.1 mg/dL (8.6-10.3); Potassium 3.6 mEq/L (3.5-5.1); Troponin I 0.04 ng/mL (< 0.04)
[2019-09-28] MEDS ORDERED: Naloxone 0.4 MG/ML INJ IVP PRN (15:49)
[2019-09-28] MEDS ORDERED: Furosemide 40 MG/4 ML VIAL IVP ONE (19:00)
[2019-09-29 05:49] LABS: INR 2.2; Prothrombin Time 25.2 Seconds (9.4-12.1)
[2019-09-29 06:05] LABS: Calcium 10.9 mg/dL (8.6-10.3); Potassium 3.4 mEq/L (3.5-5.1)
[2019-09-29] MEDS: Levothyroxine 25 MCG TABLET PO SCH (06:05)
[2019-09-29 07:49] LABS: Bilirubin,Urine Negative (Negative); Blood,Urine Negative (Negative); Clarity,Urine Clear (Clear); Color,Urine Yellow (Yellow); Glucose,Urine (UA) Normal (Normal); Ketones,Urine Negative (Negative); Leukocyte Esterase,Urine Small (Negative); Nitrite,Urine Negative (Negative); PH,Urine 5.5 pH Units (5.0-8.0); Protein,Urine 100 mg/dL (Neg-Trace); Specific Gravity,Urine 1.016 (1.010-1.025); Urobilinogen,Urine Normal (Normal)
[2019-09-29 07:52] LABS: Bacteria,Urine None Seen per hpf (None-Few); Hyaline Casts,Urine None Seen per lpf (None-Few); Squamous Epithelial Cell,Urine Many per lpf (None-Few)
[2019-09-29] MEDS: Spironolactone 25 MG TABLET PO SCH (08:50)
[2019-09-29] MEDS: Insulin LISPRO 300 UNITS/3 ML VIAL SQ SCH ×3 (08:50→17:21)
[2019-09-29] MEDS: *HR* Amiodarone 200 MG TABLET PO SCH (08:50)
[2019-09-29] MEDS: amLODIPine 5 MG TABLET PO SCH (08:51)
[2019-09-29] MEDS: metOLazone 2.5 MG TABLET PO SCH (08:51)
[2019-09-29] MEDS ORDERED: Furosemide 40 MG/4 ML VIAL IVP ONE (11:13)
[2019-09-29] MEDS ORDERED: Ondansetron 4 MG/2 ML VIAL IVP PRN (12:12)
[2019-09-30] MEDS: Levothyroxine 25 MCG TABLET PO SCH (05:57)
[2019-09-30 07:34] LABS: Basophils # 0.1 K/mcL (0.0-0.2); Basophils % 0.7 %; Eosinophils # 0.2 K/mcL (0.0-0.6); Eosinophils % 1.3 %; Hematocrit 29.4 % (35.3-44.9); Hemoglobin 9.1 g/dL (11.5-15.4); Immature Granulocytes % 0.6 % (0-4); Lymphocytes % 8.5 %; Mean Platelet Volume 12.1 fL (9.4-12.4); Monocytes % 8.5 %; Neutrophils # 9.2 K/mcL (1.6-8.9); Platelet Count 231 K/mcL (140-400); Red Blood Count 3.03 M/mcL (3.82-4.97); Red Cell Distribution Width 14.3 % (11.5-14.5); Segmented Neutrophils % 80.4 %; White Blood Count 11.5 K/mcL (4.3-11.1)
[2019-09-30 07:46] LABS: Calcium 10.3 mg/dL (8.6-10.3); Phosphorous 5.7 mg/dL (2.7-4.5); Potassium 3.9 mEq/L (3.5-5.1)
[2019-09-30] MEDS: Insulin LISPRO 300 UNITS/3 ML VIAL SQ SCH ×3 (08:56→15:43)
[2019-09-30] MEDS: *HR* Amiodarone 200 MG TABLET PO SCH (09:02)
[2019-09-30] MEDS: Spironolactone 25 MG TABLET PO SCH (09:02)
[2019-09-30] MEDS: Furosemide 40 MG/4 ML VIAL IVP SCH (09:03)
[2019-09-30] MEDS: amLODIPine 5 MG TABLET PO SCH (09:03)
[2019-09-30] MEDS: metOLazone 2.5 MG TABLET PO SCH (09:03)
[2019-10-01 01:51] LABS: Potassium 4.7 mEq/L (3.5-5.1)
[2019-10-01 01:53] LABS: Phosphorous 5.2 mg/dL (2.7-4.5)
[2019-10-01] MEDS: Levothyroxine 25 MCG TABLET PO SCH (05:32)
[2019-10-01] MEDS ORDERED: D5% in Water 1,000 ML IVC PRN (06:52)
[2019-10-01] MEDS ORDERED: Dextrose Gel 15 GM/37.5 ML TUBE PO PRN ×2 (06:52)
[2019-10-01] MEDS ORDERED: *HR* Dextrose 50 % in Water (Syg) 50 ML SYRINGE IVP PRN (06:52)
[2019-10-01] MEDS: Insulin LISPRO 300 UNITS/3 ML VIAL SQ SCH ×3 (08:23→17:35)
[2019-10-01] MEDS ORDERED: metOLazone 2.5 MG TABLET PO SCH (08:30)
[2019-10-01] MEDS: *HR* Amiodarone 200 MG TABLET PO SCH (08:32)
[2019-10-01] MEDS: Furosemide 40 MG/4 ML VIAL IVP SCH (08:32)
[2019-10-01] MEDS: Spironolactone 25 MG TABLET PO SCH (08:32)
[2019-10-01] MEDS: amLODIPine 5 MG TABLET PO SCH (08:32)
[2019-10-01 11:58] LABS: INR 1.7; Prothrombin Time 18.9 Seconds (9.4-12.1)
[2019-10-01] MEDS ORDERED: 0.9 % Sodium Chloride 250 ML IVC PRN (12:02)
[2019-10-01] MEDS ORDERED: 0.9 % Sodium Chloride 1,000 ML PRIME SCH (12:15)
[2019-10-01] MEDS ORDERED: Warfarin perPT PO PRN (18:00)
[2019-10-01] MEDS ORDERED: *HR* Warfarin 5 MG TABLET PO ONE (18:00)
[2019-10-02 04:22] LABS: INR 1.7; Prothrombin Time 19.3 Seconds (9.4-12.1)
[2019-10-02 04:31] LABS: Calcium 9.7 mg/dL (8.6-10.3); Potassium 4.6 mEq/L (3.5-5.1)
[2019-10-02] MEDS: Levothyroxine 25 MCG TABLET PO SCH (05:25)
[2019-10-02] MEDS ORDERED: 0.9 % Sodium Chloride 250 ML IVC PRN (07:26)
[2019-10-02] MEDS: Insulin LISPRO 300 UNITS/3 ML VIAL SQ SCH ×3 (07:52→17:21)
[2019-10-02] MEDS: *HR* Amiodarone 200 MG TABLET PO SCH (08:11)
[2019-10-02] MEDS: metOLazone 2.5 MG TABLET PO SCH (12:51)
[2019-10-02] MEDS: amLODIPine 5 MG TABLET PO SCH (12:52)
[2019-10-02] MEDS: Spironolactone 25 MG TABLET PO SCH (12:52)
[2019-10-02] MEDS: Furosemide 40 MG TABLET PO SCH ×2 (12:52→17:03)
[2019-10-02 14:25] LABS: Hepatitis B Surface Antibody 4.32 mIU/mL
[2019-10-02 14:36] LABS: Hepatitis B Surface Antigen Nonreactive (Nonreactive)
[2019-10-02 15:09] LABS: Hepatitis B Core IgM Nonreactive (Nonreactive)
[2019-10-02] MEDS ORDERED: *HR* Warfarin 5 MG TABLET PO ONE (18:00)
[2019-10-03 05:10] LABS: Basophils # 0.1 K/mcL (0.0-0.2); Basophils % 0.8 %; Eosinophils # 0.7 K/mcL (0.0-0.6); Eosinophils % 7.5 %; Hematocrit 28.4 % (35.3-44.9); Hemoglobin 8.9 g/dL (11.5-15.4); Immature Granulocytes % 0.5 % (0-4); Lymphocytes # 1.4 K/mcL (0.6-4.6); Lymphocytes % 14.5 %; Mean Corpuscular HGB Conc 31.3 g/dL (31.6-35.5); Mean Corpuscular Volume 95.6 fL (83.0-100.0); Mean Platelet Volume 12.1 fL (9.4-12.4); Monocytes # 0.9 K/mcL (0.0-1.3); Monocytes % 9.9 %; Neutrophils # 6.2 K/mcL (1.6-8.9); Platelet Count 274 K/mcL (140-400); Red Blood Count 2.97 M/mcL (3.82-4.97); Red Cell Distribution Width 13.6 % (11.5-14.5); Segmented Neutrophils % 66.8 %; White Blood Count 9.3 K/mcL (4.3-11.1)
[2019-10-03 05:15] LABS: INR 1.9; Prothrombin Time 21.9 Seconds (9.4-12.1)
[2019-10-03 05:18] LABS: Calcium 9.5 mg/dL (8.6-10.3); Potassium 4.1 mEq/L (3.5-5.1)
[2019-10-03] MEDS: Levothyroxine 25 MCG TABLET PO SCH (07:26)
[2019-10-03] MEDS ORDERED: 0.9 % Sodium Chloride 250 ML IVC PRN (07:44)
[2019-10-03] MEDS: Insulin LISPRO 300 UNITS/3 ML VIAL SQ SCH ×3 (08:07→17:01)
[2019-10-03] MEDS: Furosemide 40 MG TABLET PO SCH ×2 (08:09→17:01)
[2019-10-03] MEDS: amLODIPine 5 MG TABLET PO SCH (08:09)
[2019-10-03] MEDS: Spironolactone 25 MG TABLET PO SCH (08:09)
[2019-10-03] MEDS: metOLazone 2.5 MG TABLET PO SCH (08:09)
[2019-10-03] MEDS: *HR* Amiodarone 200 MG TABLET PO SCH (14:58)
[2019-10-03] MEDS ORDERED: *HR* Warfarin 2.5 MG TABLET PO ONE (18:00)
[2019-10-03] MEDS ORDERED: *HR* LORazepam 0.5 MG TABLET PO PRN (20:18)
[2019-10-04 04:11] LABS: Hematocrit 31.1 % (35.3-44.9); Hemoglobin 9.7 g/dL (11.5-15.4)
[2019-10-04 04:14] LABS: Prothrombin Time 22.7 Seconds (9.4-12.1)
[2019-10-04 04:31] LABS: Potassium 4.3 mEq/L (3.5-5.1)
[2019-10-04] MEDS: Levothyroxine 25 MCG TABLET PO SCH (05:51)
[2019-10-04] MEDS: Insulin LISPRO 300 UNITS/3 ML VIAL SQ SCH ×3 (07:36→16:43)
[2019-10-04] MEDS: Furosemide 40 MG TABLET PO SCH ×2 (07:49→16:43)
[2019-10-04] MEDS: metOLazone 2.5 MG TABLET PO SCH (07:49)
[2019-10-04] MEDS: Spironolactone 25 MG TABLET PO SCH (07:49)
[2019-10-04] MEDS: amLODIPine 5 MG TABLET PO SCH (07:49)
[2019-10-04] MEDS: *HR* Amiodarone 200 MG TABLET PO SCH (08:51)
[2019-10-04] MEDS ORDERED: *HR* Warfarin 5 MG TABLET PO ONE (18:00)
[2019-10-04] MEDS: Melatonin 3 MG TABLET PO SCH (20:54)
[2019-10-04] MEDS ORDERED: *HR* LORazepam 0.5 MG TABLET PO PRN (21:15)
[2019-10-05 01:25] LABS: Hematocrit 29.9 % (35.3-44.9); Hemoglobin 9.3 g/dL (11.5-15.4)
[2019-10-05 01:26] LABS: Prothrombin Time 22.5 Seconds (9.4-12.1)
[2019-10-05 01:41] LABS: Calcium 9.9 mg/dL (8.6-10.3); Potassium 4.2 mEq/L (3.5-5.1)
[2019-10-05] MEDS: Levothyroxine 25 MCG TABLET PO SCH (05:57)
[2019-10-05] MEDS ORDERED: 0.9 % Sodium Chloride 250 ML IVC PRN (07:00)
[2019-10-05] MEDS: Insulin LISPRO 300 UNITS/3 ML VIAL SQ SCH ×3 (07:45→16:49)
[2019-10-05] MEDS: Furosemide 40 MG TABLET PO SCH ×2 (12:01→16:49)
[2019-10-05] MEDS: amLODIPine 5 MG TABLET PO SCH (13:05)
[2019-10-05] MEDS: metOLazone 2.5 MG TABLET PO SCH (13:05)
[2019-10-05] MEDS: Spironolactone 25 MG TABLET PO SCH (13:05)
[2019-10-05] MEDS ORDERED: *HR* Warfarin 5 MG TABLET PO ONE (18:00)
[2019-10-05] MEDS: Melatonin 3 MG TABLET PO SCH (20:51)
[2019-10-06 05:01] LABS: INR 1.9; Prothrombin Time 21.7 Seconds (9.4-12.1)
[2019-10-06 05:10] LABS: Hematocrit 33.3 % (35.3-44.9); Hemoglobin 10.4 g/dL (11.5-15.4)
[2019-10-06 05:24] LABS: Calcium 10.1 mg/dL (8.6-10.3); Potassium 4.1 mEq/L (3.5-5.1)
[2019-10-06] MEDS: Levothyroxine 25 MCG TABLET PO SCH (06:11)
[2019-10-06] MEDS ORDERED: 0.9 % Sodium Chloride 250 ML IVC PRN (08:02)
[2019-10-06] MEDS ORDERED: *HR* Heparin 10,000 UNIT/10 ML VIAL IV PRN (08:02)
[2019-10-06] MEDS ORDERED: 0.9 % Sodium Chloride 1,000 ML PRIME SCH (08:15)
[2019-10-06] MEDS: Insulin LISPRO 300 UNITS/3 ML VIAL SQ SCH ×2 (09:10→12:27)
[2019-10-06 14:12] VITALS: BP 140/55
[2019-10-06] MEDS: Furosemide 40 MG TABLET PO SCH (14:17)
[2019-10-06] MEDS: amLODIPine 5 MG TABLET PO SCH (14:20)
[2019-10-06] MEDS: metOLazone 2.5 MG TABLET PO SCH (14:20)
[2019-10-06] MEDS: Spironolactone 25 MG TABLET PO SCH (14:20)
[2019-10-06] MEDS ORDERED: *HR* Warfarin 5 MG TABLET PO ONE (18:00)
== END 2019-10-06 15:46 | DRG 291 ==
LOC: EMEROOARM 12:10 → 2ANU 12:10 → SUATTDRO 18:35 → 2ANU 18:58 → SUATTDRO 09-30 11:44
PROVIDERS: ADMIT Internal Medicine; ATTEND Family Medicine